=== PATIENT | female | born 1930 | race Caucasian/White ===

== ENCOUNTER → 2017-10-06 | Outpatient (CLI) | payer MEDICARE, OTHER ==
[~2017-10-06] MED LIST: AZIT250T12 PO; INSU100V6 SQ
[2017-10-06 09:36] LABS: BILIRUBIN,URINE NEGATIVE (NEGATIVE); CLARITY,URINE CLEAR; COLOR,URINE YELLOW; GLUCOSE, URINE (UA) NEGATIVE (NEGATIVE); KETONES,URINE NEGATIVE (NEGATIVE); LEUKOCYTE ESTERASE ,URINE 3+ (NEGATIVE); NITRITE,URINE NEGATIVE (NEGATIVE); PH,URINE 5 (5-9); PROTEIN,URINE NEGATIVE (NEGATIVE); UROBILINOGEN,URINE NORMAL (NORMAL)
[2017-10-06 10:00] LABS: BACTERIA,URINE FEW /HPF
== END ==
LOC: LAB 09:17
PROVIDERS: ATTEND Family Medicine
DX: E11.9 Type 2 diabetes mellitus without complications (principal); N39.0 Urinary tract infection, site not specified
CPT/HCPCS: 36415; 81000; 83036; 87077; 87088

== ENCOUNTER 2017-10-12 13:25 | Observation (INO) | payer MEDICARE, OTHER ==
[~2017-10-12] VITALS: Ht 165.1 cm; Wt 74.9 kg
[2017-10-12] VITALS (10 sets, daily range): BP systolic 144–172; BP diastolic 74–85
--- OUTSIDE RECORDS SUMMARY | 2017-10-12 13:31 | XMS REPORT | Continuity of Care Document ---
Author Author [facility] Organization [facility] Address Unknown Phone Unavailable Allergies There is no data. Medications There is no data. Problems Date Dx Coded Attending Type Code Diagnosis Diagnosed By 06/11/2014 TOMAS LYLES JUANITA Tan Ot 599.0 URIN TRACT INFECTION NOS 07/30/2014 Ot 723.1 07/30/2014 Ot 781.3 07/30/2014 Ot 722.52 07/30/2014 GELLENDER DO, JUANITA Tan Ot 599.0 07/31/2014 Ot 723.1 07/31/2014 Ot 781.3 07/31/2014 Ot 722.52 07/31/2014 GELLENDER DO, JUANITA Tan Ot 599.0 08/02/2014 Ot 599.0 10/29/2015 GELLENDER DO, JUANITA Tan Ot R42 DIZZINESS AND GIDDINESS 10/29/2015 GELLENDER DO, JUANITA Tan Ot R42 DIZZINESS AND GIDDINESS 10/30/2015 GELLENDER DO, JUANITA Tan Ot R42 DIZZINESS AND GIDDINESS 10/31/2015 GELLENDER DO, JAUNITA Tan Ot R42 DIZZINESS AND GIDDINESS 11/21/2015 GELLENDER DO, JUANITA Tan Ot R42 DIZZINESS AND GIDDINESS 12/11/2015 GELLENDER DO, JUANITA Tan Ot 599.0 URIN TRACT INFECTION NOS 12/11/2015 Ot 599.0 URIN TRACT INFECTION NOS 12/11/2015 GELLENDER DO, JUANITA Tan Ot R42 DIZZINESS AND GIDDINESS 12/13/2015 GELLENDER DO, JUANITA Tan Ot M54.2 CERVICALGIA 12/16/2015 GELLENDER DO, JUANITA Tan Ot M54.2 CERVICALGIA 12/17/2015 RASHID MEREDITH MD Ot 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 12/17/2015 RASHID MEREDITH MD Ot H91.93 UNSPECIFIED HEARING LOSS, BILATERAL 12/17/2015 RASHID MEREDITH MD Ot R42 DIZZINESS AND GIDDINESS 12/18/2015 RASHID MEREDITH MD Ot 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 12/18/2015 RASHID MEREDITH MD Ot H91.93 UNSPECIFIED HEARING LOSS, BILATERAL 12/18/2015 RASHID MEREDITH MD Ot R42 DIZZINESS AND GIDDINESS 12/18/2015 GELLENDER DO, JUANITA A Ot 599.0 URIN TRACT INFECTION NOS 12/18/2015 Ot 599.0 URIN TRACT INFECTION NOS 12/18/2015 GELLENDER DO, JUANITA A Ot R42 DIZZINESS AND GIDDINESS 12/18/2015 RASHID MEREDITH MD Ot 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 12/18/2015 RASHID MEREDITH MD Ot H91.93 UNSPECIFIED HEARING LOSS, BILATERAL 12/18/2015 RASHID MEREDITH MD Ot R42 DIZZINESS AND GIDDINESS 12/18/2015 GELLENDER DO, JUANITA A Ot M54.2 CERVICALGIA 12/18/2015 GELLENDER DO, JUANITA A Ot 599.0 URIN TRACT INFECTION NOS 12/18/2015 Ot 599.0 URIN TRACT INFECTION NOS 12/18/2015 GELLENDER DO, JUANITA A Ot R42 DIZZINESS AND GIDDINESS 12/18/2015 RASHID MEREDITH MD Ot 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 12/18/2015 RSAHID MEREDITH MD Ot H91.93 UNSPECIFIED HEARING LOSS, BILATERAL 12/18/2015 RASHID MEREDITH MD Ot R42 DIZZINESS AND GIDDINESS 12/18/2015 GELLENDER DO, JUANITA A Ot M54.2 CERVICALGIA 12/18/2015 GELLENDER DO, JUANITA A Ot 599.0 URIN TRACT INFECTION NOS 12/18/2015 Ot 599.0 URIN TRACT INFECTION NOS 12/18/2015 GELLENDER DO, JUANITA A Ot R42 DIZZINESS AND GIDDINESS 12/18/2015 RASHID MEREDITH MD Ot 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 12/18/2015 RASHID MEREDITH MD Ot H91.93 UNSPECIFIED HEARING LOSS, BILATERAL 12/18/2015 RASHID MEREDITH MD Ot R42 DIZZINESS AND GIDDINESS 12/18/2015 GELLENDER DO, JUANITA A Ot M54.2 CERVICALGIA 01/16/2016 RASHID MEREDITH MD Ot 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 01/16/2016 RASHID MEREDITH MD Ot H91.93 UNSPECIFIED HEARING LOSS, BILATERAL 01/16/2016 RASHID MEREDITH MD Ot R42 DIZZINESS AND GIDDINESS 01/16/2016 GELLENDER DO, JUANITA A Ot M54.2 CERVICALGIA 03/06/2016 GELLENDER DO, JUANITA A Ot 599.0 URIN TRACT INFECTION NOS 03/06/2016 Ot 599.0 URIN TRACT INFECTION NOS 03/06/2016 GELLENDER DO, JUANITA A Ot R42 DIZZINESS AND GIDDINESS 03/06/2016 RASHID MEREDITH MD Ot 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 03/06/2016 RASHID MEREDITH MD Ot H91.93 UNSPECIFIED HEARING LOSS, BILATERAL 03/06/2016 RASHID MEREDITH MD Ot R42 DIZZINESS AND GIDDINESS 03/06/2016 GELLENDER DO, JUANITA A Ot M54.2 CERVICALGIA 03/09/2016 GELLENDER DO, JUANITA A Ot N39.0 URINARY TRACT INFECTION, SITE NOT SPECIF 03/12/2016 GELLENDER DO, JUANITA A Ot N39.0 URINARY TRACT INFECTION, SITE NOT SPECIF 03/31/2016 GELLENDER DO, JUANITA A Ot N39.0 URINARY TRACT INFECTION, SITE NOT SPECIF 10/06/2017 GELLENDER DO, JUANITA A Ot R42 DIZZINESS AND GIDDINESS 10/06/2017 RASHID MEREDITH MD Ot 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 Results Test Result Range Bacterial urine culture - 03/06/16 13:10 URINE CULTURE RESULTS <10,000/ML NRG Complete urinalysis with reflex to culture - 10/06/17 09:22 Urine color determination YELLOW NRG Urine clarity determination CLEAR NRG Urine pH measurement by test strip 5 5-9 Specific gravity of urine by test strip 1.020 1.016- 1.022 Urine protein assay by test strip, semi-quantitative NEGATIVE NEGATIVE Urine glucose detection by automated test strip NEGATIVE NEGATIVE Erythrocytes detection in urine sediment by light microscopy NEGATIVE NEGATIVE Urine ketones detection by automated test strip NEGATIVE NEGATIVE Urine nitrite detection by test strip NEGATIVE NEGATIVE Urine total bilirubin detection by test strip NEGATIVE NEGATIVE Urine urobilinogen measurement by automated test strip (mass/volume) NORMAL NORMAL Urine leukocyte esterase detection by dipstick 3+ NEGATIVE Automated urine sediment erythrocyte count by microscopy (number/high power field) NONE NRG Automated urine sediment leukocyte count by microscopy (number/high power field ) [HPF] NRG Bacteria detection in urine sediment by light microscopy FEW NRG Squamous epithelial cells detection in urine sediment by light microscopy 5-10 NRG Crystals detection in urine sediment by light microscopy NONE NRG Casts detection in urine sediment by light microscopy NONE NRG Mucus detection in urine sediment by light microscopy NEGATIVE NRG Complete urinalysis with reflex to culture YES NRG Hemoglobin A1c - 10/06/17 09:22 Blood hemoglobin A1C measurement (mass/volume) 7.3 % 4.0- 5.6 MEAN BLOOD GLUCOSE 163 % <=126 Bacterial urine culture - 10/06/17 09:22 Bacterial urine culture [id number] NRG COLONY COUNT 10,000/ML - 100,000/ML NRG FTX;REPORTABLE SENSITIVITY NOT USUALLY PERFORMED FOR NRG URINE CULTURE RESULTS PLUS NRG FREE TEXT ENTRY 2 THIS ORGANISM. NRG Encounters ACCT No. Visit Date/Time Discharge Status Pt. Type Provider Facility Loc./Unit Complaint [id number] 10/06/2017 09:17:00 10/06/2017 23:59:59 CLS Outpatient JUANITA MARIN DO [facility] LAB UTI,DIABETES [id number] 03/06/2016 12:57:00 03/06/2016 23:59:59 CLS Outpatient JUANITA MARIN DO [facility] LAB INFECTION [id number] 12/12/2015 13:52:00 12/12/2015 23:59:59 CLS Outpatient VIRI TATE, RASHID Douglas [facility] RAD VERTIGO/DIZZINESS; BILATERAL HEARING IMPAIRMENT [id number] 12/11/2015 11:19:00 12/11/2015 23:59:59 CLS Outpatient JUANITA MARIN DO [facility] RAD NECK PAIN FOR A WEEK [id number] 10/29/2015 14:40:00 10/29/2015 23:59:59 CLS Outpatient JUANITA MARIN DO [facility] RAD UNSTEADY GAIT, DIZZINESS,LOSS OF BALANCE [id number] 06/12/2014 00:58:00 06/12/2014 23:59:59 CLS Preadmit JUANITA MARIN DO [facility] LAB INFECTION [id number] 03/13/2014 13:52:00 06/11/2014 00:01:00 DIS Outpatient JUANITA MARIN DO [facility] LAB INFECTION [id number] 07/30/2014 13:14:00 Document Registration [id number] 12/17/2009 10:00:00 Document Registration [id number] 12/03/2009 12:58:00 Document Registration
[2017-10-12] MEDS ORDERED: AZIT250T12 PO (13:53)
[2017-10-12] MEDS ORDERED: INSU100V6 SQ (13:53)
[2017-10-12 14:06] LABS: BASOPHILS # (AUTO) 0.1 10^3/uL (0.0-0.1); BASOPHILS % (AUTO) 1 % (0-10); EOSINOPHILS # (AUTO) 0.1 10^3/uL (0.0-0.3); EOSINOPHILS % (AUTO) 3 % (0-10); HEMATOCRIT 41 % (35-52); HEMOGLOBIN 13.8 G/DL (11.5-16.0); LYMPHOCYTES % (AUTO) 19 % (12-44); MEAN CORPUSCULAR HEMOGLOBIN 31 PG (25-34); MEAN CORPUSCULAR HGB CONC 34 G/DL (32-36); MEAN CORPUSCULAR VOLUME 91 FL (80-99); MEAN PLATELET VOLUME 11.6 FL (7.4-10.4); MONOCYTES # (AUTO) 0.5 X 10^3 (0.0-1.0); MONOCYTES % (AUTO) 9 % (0-12); NEUTROPHILS # (AUTO) 3.8 X 10^3 (1.8-7.8); NEUTROPHILS % (AUTO) 69 % (42-75); PLATELET COUNT 157 10^3/uL (130-400); RED BLOOD COUNT 4.49 10^6/uL (4.35-5.85); RED CELL DISTRIBUTION WIDTH 12.6 % (10.0-14.5); WHITE BLOOD COUNT 5.5 10^3/uL (4.3-11.0)
[2017-10-12 14:15] LABS: PROTHROMBIN TIME PATIENT 13.6 SEC (12.2-14.7)
[2017-10-12 14:19] LABS: ALANINE AMINOTRANSFERASE 23 U/L (0-55); ALBUMIN 4.1 GM/DL (3.2-4.5); ALKALINE PHOSPHATASE 72 U/L (40-136); BILIRUBIN,TOTAL 0.6 MG/DL (0.1-1.0); BUN/CREATININE RATIO 18; CALCIUM 10.1 MG/DL (8.5-10.1); CARBON DIOXIDE 25 MMOL/L (21-32); CHLORIDE 110 MMOL/L (98-107); CREATININE SERUM 1.15 MG/DL (0.60-1.30); GFR ESTIMATED 45; GLUCOSE 152 MG/DL (70-105); LIPASE 36 U/L (8-78); MAGNESIUM 2.3 MG/DL (1.8-2.4); POTASSIUM 4.4 MMOL/L (3.6-5.0); SODIUM 143 MMOL/L (135-145); TOTAL PROTEIN 6.8 GM/DL (6.4-8.2)
[2017-10-12 14:25] LABS: MYOGLOBIN SERUM 32.4 NG/ML (10.0-92.0)
--- NOTE | 2017-10-12 14:28 | Diagnostic Imaging Report ---
INDICATION: Chest pain. COMPARISON: None. FINDINGS: Single frontal view of the chest demonstrates normal heart size and pulmonary vascularity. The lungs are well aerated and clear. No large pleural effusion or pneumothorax is seen. The visualized osseous structures show no acute abnormalities. IMPRESSION: 1. No acute cardiopulmonary process. Dictated by: Dictated on workstation # [id number]
--- NOTE | 2017-10-12 14:40 | ED Chest Pain ---
General Chief Complaint: Chest Pain Stated Complaint: PRESSURE IN CHEST WENT UP TO NECK Nursing Triage Note: PT STATES CHEST PRESSURE UP INTO HER SHOULDER AND NECK THAT HAPPENED ABOUT 1000 TODAY, NO PAIN OR PRESSURE NOW. Nursing Sepsis Screen: No Definite Risk Source: patient Exam Limitations: no limitations History of Present Illness Date Seen by Provider: October 12, 2017 Time Seen by Provider: 13:55 Initial Comments Here with acute onset of chest pressure that started about 1030 this morning and lasted about 45 minutes. Pressure started middle the chest and radiated up towards the neck. It then went into the jaw and base of the ears. Went away on its own over time. Denies ever having anything like this before. Does have history of cardiac catheterization 4 years ago that was apparently normal. Reports that she was dizzy and weak but denies vomiting or sweating. Does have chronic dizziness or confusion and states that's related to moving her legs. Timing/Duration: 1-3 hours Severity/Quality: moderate, pressure Location: central, back Radiation: jaw, neck Activities at Onset: none Prior CP/Workup: cardiac cath Modifying Factors: worse with exercise; improves with rest ASA po RESIDENTIAL ASSISTANT: No (allergy) NTG SL RESIDENTIAL ASSISTANT: No Associated Symptoms: No abdominal pain; back pain, dizziness, fatigue; No fever /chills, No nausea/vomiting, No shortness of breath; weakness Allergies and Home Medications Allergies Coded Allergies: Penicillins (Verified Allergy, Severe, 10/12/17) aspirin (Verified Allergy, Severe, 10/12/17) levofloxacin (Verified Allergy, Intermediate, 10/12/17) Uncoded Allergies: CONTRAST DYE (Allergy, Severe, 10/12/17) Home Medications Azithromycin 250 Mg Tablet, 250 MG PO DAILY, (Reported) Insulin Glargine,Hum.rec.anlog 100 Unit/1 Ml Vial, 10 UNIT SQ HS, (Reported) Patient Home Medication List Home Medication List Reviewed: Yes Review of Systems Constitutional: see HPI; No chills; fever EENTM: No Symptoms Reported Respiratory: No Symptoms Reported Cardiovascular: See HPI Gastrointestinal: See HPI Genitourinary: No Symptoms Reported Musculoskeletal: no symptoms reported Skin: no symptoms reported All Other Systems Reviewed Negative Unless Noted: Yes Past Iafekjl-Uezynq-Gxcyaa Hx Past Med/Social Hx: Reviewed Nursing Past Med/Soc Hx Patient Social History Alcohol Use: Denies Use Recreational Drug Use: No Smoking Status: Never a Smoker 2nd Hand Smoke Exposure: No Recent Foreign Travel: No Contact w/Someone Who Travel: No Recent Infectious Disease Expo: No Recent Hopitalizations: No Immunizations Up To Date Date of Influenza Vaccine: Mar 10, 2017 Seasonal Allergies Seasonal Allergies: Yes Past Medical History Surgeries: Yes (HEART CATH) Appendectomy Respiratory: No Cardiac: Yes (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") Irregular Heartbeat Genitourinary: Yes (CURRENT UTI) Gastrointestinal: No Musculoskeletal: No Endocrine: Yes Diabetes, Non-Insulin dep HEENT: Yes Hearing Impairment: Bilateral Hearing Aide Cancer: No Psychosocial: No Integumentary: Yes Eczema Family Medical History Reviewed Nursing Family Hx Physical Exam Vital Signs Vital Signs - First Documented 10/12/17 13:30 Temp 98.3 Pulse 75 Resp 18 B/P (MAP) 172/73 (106) Pulse Ox 96 O2 Delivery Room Air Capillary Refill : Less Than 3 Seconds General Appearance: No Apparent Distress, WD/WN HEENT: PERRL/EOMI, Pharynx Normal Neck: Non Tender, Supple Respiratory: Lungs Clear, Normal Breath Sounds Cardiovascular: Regular Rate, Rhythm, No Murmur Gastrointestinal: Non Tender, Soft Extremity: Normal Range of Motion, Non Tender Neurologic/Psychiatric: Alert, Oriented x3 Skin: Normal Color, Warm/Dry Progress/Results/Core Measures Results/Orders Lab Results Laboratory Tests Test 10/12/17 13:37 Range/Units White Blood Count 5.5 4.3-11.0 10^3/uL Red Blood Count 4.49 4.35-5.85 10^6/uL Hemoglobin 13.8 11.5-16.0 G/DL Hematocrit 41 35-52 % Mean Corpuscular Volume 91 80-99 FL Mean Corpuscular Hemoglobin 31 25-34 PG Mean Corpuscular Hemoglobin Concent 34 32-36 G/DL Red Cell Distribution Width 12.6 10.0-14.5 % Platelet Count 157 130-400 10^3/uL Mean Platelet Volume 11.6 H 7.4-10.4 FL Neutrophils (%) (Auto) 69 42-75 % Lymphocytes (%) (Auto) 19 12-44 % Monocytes (%) (Auto) 9 0-12 % Eosinophils (%) (Auto) 3 0-10 % Basophils (%) (Auto) 1 0-10 % Neutrophils # (Auto) 3.8 1.8-7.8 X 10^3 Lymphocytes # (Auto) 1.0 1.0-4.0 X 10^3 Monocytes # (Auto) 0.5 0.0-1.0 X 10^3 Eosinophils # (Auto) 0.1 0.0-0.3 10^3/uL Basophils # (Auto) 0.1 0.0-0.1 10^3/uL Prothrombin Time 13.6 12.2-14.7 SEC INR Comment 1.0 0.8-1.4 Activated Partial Thromboplast Time 28 24-35 SEC Sodium Level 143 135-145 MMOL/L Potassium Level 4.4 3.6-5.0 MMOL/L Chloride Level 110 H 98-107 MMOL/L Carbon Dioxide Level 25 21-32 MMOL/L Anion Gap 8 5-14 MMOL/L Blood Urea Nitrogen 21 H 7-18 MG/DL Creatinine 1.15 0.60-1.30 MG/DL Estimat Glomerular Filtration Rate 45 BUN/Creatinine Ratio 18 Glucose Level 152 H 70-105 MG/DL Calcium Level 10.1 8.5-10.1 MG/DL Magnesium Level 2.3 1.8-2.4 MG/DL Total Bilirubin 0.6 0.1-1.0 MG/DL Aspartate Amino Transf (AST/SGOT) 22 5-34 U/L Alanine Aminotransferase (ALT/SGPT) 23 0-55 U/L Alkaline Phosphatase 72 40-136 U/L Myoglobin 32.4 10.0-92.0 NG/ML Troponin I < 0.30 <0.30 NG/ML Total Protein 6.8 6.4-8.2 GM/DL Albumin 4.1 3.2-4.5 GM/DL Lipase 36 8-78 U/L My Orders Orders - JANEL LESTER MD Cbc With Automated Diff (10/12/17 13:59) Magnesium (10/12/17 13:59) Chest 1 View, Ap/Pa Only (10/12/17 13:59) Ekg Tracing (10/12/17 13:59) Cardiac Profile 1 (10/12/17 13:59) Comprehensive Metabolic Panel (10/12/17 13:59) Myoglobin Serum (10/12/17 13:59) Protime With Inr (10/12/17 13:59) Partial Thromboplastin Time (10/12/17 13:59) O2 (10/12/17 13:59) Monitor-Rhythm Ecg Trace Only (10/12/17 13:59) Lipid Panel (10/13/17 06:00) Saline Lock/Iv-Start (10/12/17 13:59) Lipase (10/12/17 13:59) Vital Signs/I&O 10/12/17 10/12/17 13:30 13:53 Temp 98.3 Pulse 75 Resp 18 B/P (MAP) 172/73 (106) Pulse Ox 96 O2 Delivery Room Air Room Air Blood Pressure Mean: 106 Progress Progress Note : Progress Note Seen and evaluated. IV, labs, EKG and chest x-ray ordered. No ASA as patient has allergies. Monitor patient. 1440: No significant findings. Concerning history with the radiation of the chest pressure. This in the setting of patient's age increases her risk. I do believe patient would benefit from further evaluation. She is in agreement. I did discuss the case with Dr. Marin and he accepts patient for admission, observation status. I did discuss the case with Dr. Brown, who accepted patient for consult. Findings and concerns discussed with patient and family who agree with plan. 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 Left axis deviation. Question LVH. No evidence of ST elevation SC. No previous available for comparison. Interpreted by me. Diagnostic Imaging Diagonstic Imaging: Xray Plain Films/CT/US/NM/MRI: chest Comments VIA [facility]. [place], [place] NAME: [facility] REC#: [id number] PT STATUS: REG ER : 1930 PHYSICIAN: JANEL LESTER MD ADMIT DATE: 10/12/17/ER Draft Date of Exam:10/12/17 CHEST 1 VIEW, AP/PA ONLY INDICATION: Chest pain. COMPARISON: None. FINDINGS: Single frontal view of the chest demonstrates normal heart size and pulmonary vascularity. The lungs are well aerated and clear. No large pleural effusion or pneumothorax is seen. The visualized osseous structures show no acute abnormalities. IMPRESSION: 1. No acute cardiopulmonary process. Dictated on workstation # [id number] Dict: 10/12/17 1426 Trans: 10/12/17 1427 [id number] Interpreted by: YOUNG FULTON MD Electronically signed by: Departure Communication (Admissions) Time/Spoke to Admitting Phy: 14:40 Time/Spoke to Consulting Phy: 14:45 Impression Primary Impression: Chest pain Qualified Codes: R07.9 - Chest pain, unspecified Disposition: ADMITTED INPATIENT Condition: Stable Admissions Decision to Admit Reason: Admit from ER (General) Decision to Admit/Date: October 12, 2017 Time/Decision to Admit Time: 14:40 Departure-Patient Inst. Referrals: JUANITA MARIN DO (PCP/Family) Primary Care Physician JANEL LESTER MD October 12, 2017 14:40
--- OUTSIDE RECORDS SUMMARY | 2017-10-12 15:02 | XMS REPORT | Continuity of Care Document ---
Author Author [facility] Organization [facility] Address Unknown Phone Unavailable Allergies There is [...] R42 DIZZINESS AND GIDDINESS 10/31/2015 GELLENDER DO, JUANITA Tan Ot R42 DIZZINESS AND GIDDINESS 11/21/2015 [...] culture - 10/06/17 09:22 Bacterial urine culture [id number] NRG COLONY COUNT 10,000/ML - 100,000/ML NRG FTX;REPORTABLE SENSITIVITY NOT USUALLY PERFORMED FOR NRG URINE CULTURE RESULTS PLUS NRG FREE TEXT ENTRY 2 THIS ORGANISM. NRG Encounters ACCT No. Visit Date/Time Discharge Status Pt. Type Provider Facility Loc./Unit Complaint [id number] 10/06/2017 09:17:00 10/06/2017 23:59:59 CLS Outpatient JUANITA MARIN DO [facility] LAB UTI,DIABETES [id number] 03/06/2016 12:57:00 03/06/2016 23:59:59 CLS Outpatient JUANITA MARIN DO [facility] LAB INFECTION [id number] 12/12/2015 13:52:00 12/12/2015 23:59:59 CLS Outpatient VIRI TATE, RASHID Douglas [facility] RAD VERTIGO/DIZZINESS; BILATERAL HEARING IMPAIRMENT [id number] 12/11/2015 11:19:00 12/11/2015 23:59:59 CLS Outpatient JUANITA MARIN DO [facility] RAD NECK PAIN FOR A WEEK [id number] 10/29/2015 14:40:00 10/29/2015 23:59:59 CLS Outpatient JUANITA MARIN DO [facility] RAD UNSTEADY GAIT, DIZZINESS,LOSS OF BALANCE [id number] 06/12/2014 00:58:00 06/12/2014 23:59:59 CLS Preadmit JUANITA MARIN DO [facility] LAB INFECTION [id number] 03/13/2014 13:52:00 06/11/2014 00:01:00 DIS Outpatient JUANITA MARIN DO [facility] LAB INFECTION [id number] 07/30/2014 13:14:00 Document Registration [id number] 12/17/2009 10:00:00 Document Registration [id number] 12/03/2009 12:58:00 Document Registration
[2017-10-12] MEDS ORDERED: morphine INJ 4 MG/ML 1 ML (VIAL/SYRINGE) IVP PRN (16:15)
[2017-10-12] MEDS ORDERED: NITROGLYCERIN 0.4 MG SL TABS BTL 25'S SL PRN (16:15)
[2017-10-12 18:53] LABS: CARDIAC PROFILE 2 < 0.30 NG/ML (<0.30); MYOGLOBIN SERUM 29.8 NG/ML (10.0-92.0)
--- NOTE | 2017-10-12 19:40 | History & Physicial ---
History of Present Illness History of Present Illness Reason for visit/HPI Patient call the office today. Patient got up in October bed and got the paper. In patient had pressure in the chest radiating up to neck and jaw and going in the left ear. Can walk to the door. Just about passed out. No sweating less thickness. This never happened before. Patient 4 years ago had a negative coronary angiography. Patient and known diabetic Date of Admission October 12, 2017 at 14:45 Time Seen by Provider: 19:35 I consulted on this patient on 10/12/17 19:36 Attending Physician Jose Carlos Marin DO Admitting Physician Jose Carlos Marin DO Consult Allergies and Home Medications Allergies Coded Allergies: Penicillins (Verified Allergy, Severe, 10/12/17) aspirin (Verified Allergy, Severe, 10/12/17) levofloxacin (Verified Allergy, Intermediate, 10/12/17) Uncoded Allergies: CONTRAST DYE (Allergy, Severe, 10/12/17) Home Medications Azithromycin 250 Mg Tablet, 250 MG PO DAILY, (Reported) FILLED 10/11/17 #6 FOR A 5 DAY THERAPY Insulin Glargine,Hum.rec.anlog 100 Unit/1 Ml Vial, 10 UNIT SQ HS, (Reported) Patient Home Medication List Home Medication List Reviewed: Yes Past Sjgrwjt-Hnivtp-Wgckbt Hx Patient Social History Marrital Status: Employed/Student: retired Alcohol Use: Denies Use Recreational Drug Use: No Smoking Status: Never a Smoker 2nd Hand Smoke Exposure: No Physical Abuse Screen: No Sexual Abuse: No Recent Foreign Travel: No Contact w/other who traveled: No Recent Hopitalizations: No Recent Infectious Disease Expo: No Immunizations Up To Date Date of Influenza Vaccine: Mar 10, 2017 Seasonal Allergies Seasonal Allergies: Yes Surgeries Yes (HEART CATH) Appendectomy Respiratory No Cardiovascular Yes (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") Irregular Heartbeat Neurological No Genitourinary Yes (CURRENT UTI) Gastrointestinal No Musculoskeletal No Endocrine History of Endocrine Disorders: Yes Endocrine Disorders: Diabetes, Non-Insulin dep Are Your Blood Sugars Over 250: No HEENT History of HEENT Disorders: Yes (VERTIGO) Hearing Impairment: Bilateral Hearing Aide Cancer No Psychosocial History of Psychiatric Problem: No Integumentary History of Skin or Integumenta: Yes Skin/Integumentary Disorders: Eczema Blood Transfusions History of Blood Disorders: No Family Medical History Family Hx: Cardiovascular disease 19 MOTHER Diabetes mellitus SON DAUGHTER Constitutional: no symptoms reported, weakness EENTM: no symptoms reported Respiratory: no symptoms reported Cardiovascular: chest pain Gastrointestinal: no symptoms reported Genitourinary: no symptoms reported : No Physical Exam Vital Signs Vital Signs - First Documented 10/12/17 13:30 Temp 98.3 Pulse 75 Resp 18 B/P (MAP) 172/73 (106) Pulse Ox 96 O2 Delivery Room Air Capillary Refill : Less Than 3 Seconds General Appearance: No Apparent Distress Eyes: Bilateral Eye Normal Inspection HEENT: Normal ENT Inspection Neck: Full Range of Motion, Normal Inspection, Non Tender Respiratory: Chest Non Tender, Lungs Clear, No Accessory Muscle Use, No Respiratory Distress Cardiovascular: Regular Rate, Rhythm, No Murmur Gastrointestinal: Non Tender, Soft Assessment/Plan Assessment and Plan Chest pain. Diabetes. Admission Diagnosis Admission Status: Observation Clinical Quality Measures AMI/AHF: ASA po Prior to arrival: No (allergy) DVT/VTE Risk/Contraindication: Risk Factor Score Per Nursin RFS Level Per Nursing on Admit: 4+=Very High JOSE CARLOS MARIN DO October 12, 2017 19:40
[2017-10-12] MEDS: inSUlin ASPART (NovoLOG) 1 UNIT/0.01 ML (CHARGE PER UNIT) SC SCH (20:54)
[2017-10-12] MEDS ORDERED: ENOXAPARIN 30 MG/0.3 ML (LOVENOX) SYR SC SCH (21:00)
[2017-10-13] VITALS: BP 120/66
[2017-10-13 04:03] VITALS: BP 118/60
[2017-10-13] MEDS: inSUlin ASPART (NovoLOG) 1 UNIT/0.01 ML (CHARGE PER UNIT) SC SCH ×2 (05:36→11:29)
[2017-10-13 05:46] LABS: BASOPHILS # (AUTO) 0.1 10^3/uL (0.0-0.1); BASOPHILS % (AUTO) 1 % (0-10); EOSINOPHILS # (AUTO) 0.2 10^3/uL (0.0-0.3); EOSINOPHILS % (AUTO) 3 % (0-10); HEMATOCRIT 39 % (35-52); HEMOGLOBIN 12.9 G/DL (11.5-16.0); LYMPHOCYTES % (AUTO) 22 % (12-44); MEAN CORPUSCULAR HEMOGLOBIN 30 PG (25-34); MEAN CORPUSCULAR HGB CONC 34 G/DL (32-36); MEAN CORPUSCULAR VOLUME 91 FL (80-99); MEAN PLATELET VOLUME 11.8 FL (7.4-10.4); MONOCYTES # (AUTO) 0.6 X 10^3 (0.0-1.0); MONOCYTES % (AUTO) 13 % (0-12); NEUTROPHILS # (AUTO) 2.7 X 10^3 (1.8-7.8); NEUTROPHILS % (AUTO) 61 % (42-75); PLATELET COUNT 139 10^3/uL (130-400); RED BLOOD COUNT 4.24 10^6/uL (4.35-5.85); RED CELL DISTRIBUTION WIDTH 12.4 % (10.0-14.5); WHITE BLOOD COUNT 4.4 10^3/uL (4.3-11.0)
[2017-10-13 05:57] LABS: ALANINE AMINOTRANSFERASE 19 U/L (0-55); ALBUMIN 3.7 GM/DL (3.2-4.5); ALKALINE PHOSPHATASE 62 U/L (40-136); BILIRUBIN,TOTAL 0.5 MG/DL (0.1-1.0); BUN/CREATININE RATIO 29; CALCIUM 9.3 MG/DL (8.5-10.1); CARBON DIOXIDE 21 MMOL/L (21-32); CHLORIDE 112 MMOL/L (98-107); CREATININE SERUM 0.73 MG/DL (0.60-1.30); GFR ESTIMATED > 60; GLUCOSE 134 MG/DL (70-105); POTASSIUM 4.3 MMOL/L (3.6-5.0); SODIUM 140 MMOL/L (135-145); TOTAL PROTEIN 5.6 GM/DL (6.4-8.2)
[2017-10-13 05:58] LABS: CHOLESTEROL 142 MG/DL (< 200); HDL CHOLESTEROL 35 MG/DL (40-60); TRIGLYCERIDES 74 MG/DL (<150); VLDL CHOLESTEROL 15 MG/DL (5-40)
--- NOTE | 2017-10-13 07:24 | Progress Note (SOAP) ---
Subjective Time Seen by Provider: 07:20 Subjective/Events-last exam Patient had a good night. Patient does not want to have stress test. Patient sensitive to many medicines. Patient not having any chest pain this morning. Patient to see channel program manager Objective Exam Vital Signs Date Time Temp Pulse Resp B/P (MAP) Pulse Ox O2 Delivery O2 Flow Rate FiO2 10/13/17 04:03 98.2 66 16 118/60 (79) 97 Room Air 10/13/17 01:00 60 10/13/17 00:00 98.7 64 18 120/66 (84) 97 Room Air 10/12/17 19:25 98.4 61 16 145/81 (102) 96 10/12/17 18:25 80 20 155/85 (108) 97 Room Air 10/12/17 17:23 66 18 172/75 (107) 98 Room Air 10/12/17 16:25 64 16 144/77 (99) 98 Room Air 10/12/17 16:10 68 16 159/74 (102) 97 Room Air 10/12/17 16:00 97.1 68 20 145/75 (98) 99 10/12/17 15:55 65 16 145/75 (98) 98 Room Air 10/12/17 15:45 96.7 71 22 157/77 (103) 96 Room Air 10/12/17 15:39 96.7 72 18 157/77 (103) 97 Room Air 10/12/17 15:33 98.0 61 18 154/67 (106) 98 Room Air 10/12/17 13:53 Room Air 10/12/17 13:30 98.3 75 18 172/73 (106) 96 Room Air I & O 10/13/17 07:00 Intake Total 450 ml Output Total 400 ml Balance 50 ml Capillary Refill : Less Than 3 Seconds General Appearance: No Apparent Distress, WD/WN HEENT: Normal ENT Inspection Neck: Full Range of Motion, Normal Inspection Respiratory: Chest Non Tender, No Accessory Muscle Use, No Respiratory Distress Gastrointestinal: non tender, soft Results Lab Laboratory Tests 10/12/17 13:37 10/13/17 04:50 Laboratory Tests 10/12/17 13:37: White Blood Count 5.5, Red Blood Count 4.49, Hemoglobin 13.8, Hematocrit 41, Mean Corpuscular Volume 91, Mean Corpuscular Hemoglobin 31, Mean Corpuscular Hemoglobin Concent 34, Red Cell Distribution Width 12.6, Platelet Count 157, Mean Platelet Volume 11.6H, Neutrophils (%) (Auto) 69, Lymphocytes (%) (Auto) 19 , Monocytes (%) (Auto) 9, Eosinophils (%) (Auto) 3, Basophils (%) (Auto) 1, Neutrophils # (Auto) 3.8, Lymphocytes # (Auto) 1.0, Monocytes # (Auto) 0.5, Eosinophils # (Auto) 0.1, Basophils # (Auto) 0.1, Prothrombin Time 13.6, INR Comment 1.0, Activated Partial Thromboplast Time 28, Sodium Level 143, Potassium Level 4.4, Chloride Level 110H, Carbon Dioxide Level 25, Anion Gap 8, Blood Urea Nitrogen 21H, Creatinine 1.15, Estimat Glomerular Filtration Rate 45 , BUN/Creatinine Ratio 18, Glucose Level 152H, Calcium Level 10.1, Magnesium Level 2.3, Total Bilirubin 0.6, Aspartate Amino Transf (AST/SGOT) 22, Alanine Aminotransferase (ALT/SGPT) 23, Alkaline Phosphatase 72, Myoglobin 32.4, Troponin I < 0.30, Total Protein 6.8, Albumin 4.1, Lipase 36 10/12/17 18:10: Myoglobin 29.8, Troponin I < 0.30 10/12/17 20:34: Glucometer 227H 10/12/17 23:49: Troponin I < 0.30 10/13/17 04:50: White Blood Count 4.4, Red Blood Count 4.24L, Hemoglobin 12.9, Hematocrit 39, Mean Corpuscular Volume 91, Mean Corpuscular Hemoglobin 30, Mean Corpuscular Hemoglobin Concent 34, Red Cell Distribution Width 12.4, Platelet Count 139, Mean Platelet Volume 11.8H, Neutrophils (%) (Auto) 61, Lymphocytes (%) (Auto) 22 , Monocytes (%) (Auto) 13H, Eosinophils (%) (Auto) 3, Basophils (%) (Auto) 1, Neutrophils # (Auto) 2.7, Lymphocytes # (Auto) 1.0, Monocytes # (Auto) 0.6, Eosinophils # (Auto) 0.2, Basophils # (Auto) 0.1, Sodium Level 140, Potassium Level 4.3, Chloride Level 112H, Carbon Dioxide Level 21, Anion Gap 7, Blood Urea Nitrogen 21H, Creatinine 0.73, Estimat Glomerular Filtration Rate > 60, BUN /Creatinine Ratio 29, Glucose Level 134H, Calcium Level 9.3, Total Bilirubin 0.5 , Aspartate Amino Transf (AST/SGOT) 19, Alanine Aminotransferase (ALT/SGPT) 19, Alkaline Phosphatase 62, Total Protein 5.6L, Albumin 3.7, Triglycerides Level 74 , Cholesterol Level 142, LDL Cholesterol Direct 92, VLDL Cholesterol 15, HDL Cholesterol 35L 10/13/17 05:05: Glucometer 127H Assessment/Plan Assessment/Plan Assess & Plan/Chief Complaint Patient feeling better today. Patient does not want a stress test. Patient allergic to many medications. To speak to channel program manager today Clinical Quality Measures Admission Status Admission Dx Chest pain. Diabetes. AMI/AHF: ASA po Prior to arrival: No (allergy) DVT/VTE Risk/Contraindication: Risk Factor Score Per Nursin RFS Level Per Nursing on Admit: 4+=Very High JUANITA MARIN DO October 13, 2017 07:24
[2017-10-13 08:00] VITALS: BP 132/74
--- NOTE | 2017-10-13 14:56 | Consultation-Cardiology ---
HPI-Cardiology Cardiology Consultation: Date of Consultation 10/13/17 Date of Admission Attending Physician Jose Carlos Palumbo DO Admitting Physician Jose Carlos Palumbo DO Consulting Physician Emile BROWN MD HPI: Time Seen by Provider: 09:00 Chief Complaint: Chest pain This is a 87-year-old lady with history of diabetes. She denies hypertension, active smoking. She had coronary angiography a few years ago which according to the patient was within normal limits. No records available. She presented with episode of chest pain which radiated to her neck. Also complained of near syncope. No other associated cardiac symptoms including shortness of breath, palpitations. Moderate intensity. No exacerbating or relieving factors. Chest pain has since resolved. Review of Systems-Cardiology Review of Systems Constitutional: As described under HPI; No As described under HPI, No no symptoms reported, No chills, No fever, No lightheadedness Eyes: No As described under HPI, No no symptoms reported, No blindness, No blurred vision, No contact lenses, No drainage, No decreased acuity, No foreign body sensation, No pain, No vision change Ears/Nose/Throat: No As described under HPI, No no symptoms reported, No chronic hearing loss, No ear discharge, No ear pain, No nasal drainage, No ulcerations Respiratory: No no symptoms reported; As described under HPI; No As described under HPI, No cough, No orthopnea, No shortness of breath, No SOB with excertion Cardiovascular: No no symptoms reported; As described under HPI; No As described under HPI; chest pain; No edema, No irregular heart rate, No lightheadedness, No palpitations Gastrointestinal: No no symptoms reported, No As described under HPI, No abdomen distended, No abdominal pain, No blood streaked bowels, No constipation , No diarrhea, No nausea, No vomiting, No stool coloration changes Genitourinary: No As described under HPI, No burning, No dysuria, No discharge , No frequency, No flank pain, No hematuria, No urgency : No Musculoskeletal: No no symptoms reported, No As describe under HPI, No back pain, No gout, No joint pain, No joint swelling, No muscle pain, No muscle stiffness, No neck pain, No other Skin: No no symptoms reported, No As described under HPI, No change in color, No change in hair/nails, No dryness, No lesions, No lumps, No rash, No other, No skin related problems, No ulcerations, No rash on exposed areas, No ulcerations on exposed areas Psychiatric/Neurological: No anxiety, No depression, No seizure, No focal weakness, No syncope Hematologic: No bleeding abnormalities All Other Systems Reviewed Negative Unless Noted: Yes BIT-[id number]-[id number] Hx Patient Social History Marrital Status: Employed/Student: retired Alcohol Use: Denies Use Recreational Drug Use: No Smoking Status: Never a Smoker 2nd Hand Smoke Exposure: No Recent Foreign Travel: No Recent Infectious Disease Expo: No Physical Abuse Screen: No Sexual Abuse: No Immunizations Up To Date Date of Influenza Vaccine: Mar 10, 2017 Past Medical History PMH As described under Assessment. Family Medical History Family History: Cardiovascular disease 19 MOTHER Diabetes mellitus SON DAUGHTER Allergies and Home Medications Allergies Coded Allergies: Penicillins (Verified Allergy, Severe, 10/12/17) aspirin (Verified Allergy, Severe, 10/12/17) levofloxacin (Verified Allergy, Intermediate, 10/12/17) Uncoded Allergies: CONTRAST DYE (Allergy, Severe, 10/12/17) Home Medications Insulin Glargine,Hum.rec.anlog 100 Unit/1 Ml Vial, 10 UNIT SQ HS, (Reported) Patient Home Medication List Home Medication List Reviewed: Yes Physical Exam-Cardiology Physical Exam Vital Signs/I&O 10/13/17 10/13/17 10/13/17 10/13/17 04:03 07:00 08:00 11:45 Temp 98.2 96.8 Pulse 66 58 57 Resp 16 20 B/P (MAP) 118/60 (79) 132/74 (93) Pulse Ox 97 98 O2 Delivery Room Air Room Air 10/13/17 00:00 Intake Total 350 ml Balance 350 ml Capillary Refill : Less Than 3 Seconds Constitutional: appears stated age, AAO x 3; No apparent distress; well- developed, well-nourished HEENT: PERRL; No discharge; hearing is well preserved, oral hygience is good; No ulceration, No xanthelasmas are seen Neck: No non-tender, No full range of motion, No supple, No normal inspection, No carotid bruit, No limited range of motion, No lymphadenopathy (R), No lymphadenopathy (L), No tender lateral, No tender midline, No thyromegaly, No other; carotid pulses are 2 + bilaterally; No with good upstrokes Respiratory: No accessory muscle use, No respiratory distress, No chest tender , No chest expansion is symmetric; chest is bilaterally symmetric; No lungs clear to percussion; lungs clear to auscultation; No crackles, No rhonchi, No rales, No stridor, No wheezing, No pleural rub, No other Cardiovascular: regular rate-rhythm, S1 and S2 Gastrointestinal: No tender, No soft, No round, No distended, No pulsatile mass , No organomegaly, No guarding, No rebound, No tenderness, No hernia, No mass, No audible bowel sounds, No abnormal bowel sounds, No abdominal bruits, No spleenomegaly, No other Rectal: deferred Extremities: No normal range of motion, No non-tender, No normal inspection, No pedal edema, No calf tenderness, No normal capillary refill, No pelvis stable , No calf tenderness, No inflammation, No pedal edema, No slow capillary refill , No swelling, No other, No abrasion, No clubbing, No cyanosis, No ecchymosis, No laceration, No no lower extremity edema bilateral, No significant edema, No tenderness, No wound Neurologic/Psychiatric: No military pay technician II-XII nml as tested; no motor/sensory deficits , alert, normal mood/affect, oriented x 3; No abnormal cerebellar tests, No abnormal military pay technician II-XII, No abnormal gait, No aphasia, No EOM palsy, No facial droop , No motor weakness, No sensory deficit, No depressed affect, No disoriented x 3 , No other, No grossly intact; power is 5/5 both on sides Skin: No normal color, No warm/dry, No cyanosis, No cool, No diaphoresis, No damp, No ecchymosis, No jaundice, No mottled, No pallor, No rash, No tattoos/ piercings, No ulcerations, No rash on exposed areas, No ulcerations on exposed areas, No other Data Review Labs Laboratory Tests 10/12/17 18:10: Myoglobin 29.8, Troponin I < 0.30 10/12/17 20:34: Glucometer 227H 10/12/17 23:49: Troponin I < 0.30 10/13/17 04:50: White Blood Count 4.4, Red Blood Count 4.24L, Hemoglobin 12.9, Hematocrit 39, Mean Corpuscular Volume 91, Mean Corpuscular Hemoglobin 30, Mean Corpuscular Hemoglobin Concent 34, Red Cell Distribution Width 12.4, Platelet Count 139, Mean Platelet Volume 11.8H, Neutrophils (%) (Auto) 61, Lymphocytes (%) (Auto) 22 , Monocytes (%) (Auto) 13H, Eosinophils (%) (Auto) 3, Basophils (%) (Auto) 1, Neutrophils # (Auto) 2.7, Lymphocytes # (Auto) 1.0, Monocytes # (Auto) 0.6, Eosinophils # (Auto) 0.2, Basophils # (Auto) 0.1, Sodium Level 140, Potassium Level 4.3, Chloride Level 112H, Carbon Dioxide Level 21, Anion Gap 7, Blood Urea Nitrogen 21H, Creatinine 0.73, Estimat Glomerular Filtration Rate > 60, BUN /Creatinine Ratio 29, Glucose Level 134H, Calcium Level 9.3, Total Bilirubin 0.5 , Aspartate Amino Transf (AST/SGOT) 19, Alanine Aminotransferase (ALT/SGPT) 19, Alkaline Phosphatase 62, Total Protein 5.6L, Albumin 3.7, Triglycerides Level 74 , Cholesterol Level 142, LDL Cholesterol Direct 92, VLDL Cholesterol 15, HDL Cholesterol 35L 10/13/17 05:05: Glucometer 127H ECG Impression ECG Initial ECG Rhythm: Normal Sinus A/P-Cardiology Assessment/Admission Diagnosis Chest pain, Diabetes Plan Chest pain: Acute coronary syndrome ruled out with negative serial troponins and EKG. I recommended nuclear stress testing but the patient refused nuclear stress testing because she did not want to have the dye. Apparently she had contrast allergy before during coronary angiography. I did try to educate her that the contrast agent used in coronary angiography is different than the radioisotope that we use during nuclear stress testing but she still refused. I also offered her dobutamine stress echocardiogram but she also refused any kind of testing. Echocardiogram pending. Can be discharged to follow-up with Dr. Palumbo. Diabetes: Continue insulin. Thank you for your consultation. Please call me if you have any questions. Minda Brown MD, FACP, FACC, FSCAI, FHRS, CCDS Interventional Cardiology Cardiac Electrophysiology Vascular Medicine and Endovascular Interventions Clinical Quality Measures AMI/AHF: ASA po Prior to arrival: No (allergy) DVT/VTE Risk/Contraindication: Risk Factor Score Per Nursin RFS Level Per Nursing on Admit: 4+=Very High Emile BROWN MD October 13, 2017 14:56
[2017-10-13] MEDS ORDERED: ENOXAPARIN 40 MG/0.4 ML (LOVENOX) SYR SC SCH (21:00)
--- NOTE | 2017-10-15 07:13 | Clinic Account Progress/Dx ---
Clinic Account Progress/Dx DIAGNOSIS: Time Seen by Provider: 07:10 Chest pain unspecified. Diabetes. UTI. history JUANITA MARIN DO October 15, 2017 07:13
== END 2017-10-13 09:58 | disposition home or self-care (01) ==
LOC: EDUNIT# 13:25 → ER 13:28 → UNDOADMOB 14:45 → 4TH 14:45 → UNDODISOB 10-13 11:45
PROVIDERS: ADMIT Family Medicine; ATTEND Family Medicine
DX: R07.89 Other chest pain (principal); E11.9 Type 2 diabetes mellitus without complications; Z79.4 Long term (current) use of insulin; Z91.041 Radiographic dye allergy status
CPT/HCPCS: 36415; 71045; 80053; 80061; 82962; 83690; 83735; 83874; 84484; 85025; 85610; 85730; 93005; 93041; 93306; G0378

== ENCOUNTER → 2017-12-14 | Outpatient (CLI) | payer MEDICARE, OTHER | LOC: LAB 11:31 | PROVIDERS: ATTEND Family Medicine | DX: N39.0 Urinary tract infection, site not specified (principal) | CPT/HCPCS: 87088 ==

== ENCOUNTER → 2018-09-12 | Outpatient (CLI) | payer MEDICARE, OTHER ==
--- NOTE | 2018-09-12 12:19 | Diagnostic Imaging Report ---
EXAMINATION: Left lower extremity venous Doppler. INDICATION: Leg pain and swelling. TECHNIQUE: Spectral and color flow imaging of the deep venous system of the left lower extremity was performed. COMPARISON: There are no prior studies available for comparison. FINDINGS: There is generally good blood flow and compressibility at all levels. There is no sign of deep venous thrombosis. IMPRESSION: There is no evidence for deep venous thrombosis of the left lower extremity. Dictated by: Dictated on workstation # [id number]
== END ==
LOC: RAD 11:37
PROVIDERS: ATTEND Family Medicine
DX: M79.89 Other specified soft tissue disorders (principal)

== ENCOUNTER 2018-10-13 10:03 | Outpatient (RCR) | payer MEDICARE, OTHER | END 2018-11-07 13:45 | disposition home or self-care (01) | PROVIDERS: ATTEND Family Medicine | DX: R26.81 Unsteadiness on feet (principal) ==

== ENCOUNTER → 2018-10-18 | Outpatient (CLI) | payer MEDICARE, OTHER ==
--- NOTE | 2018-10-18 14:09 | Diagnostic Imaging Report ---
INDICATION: Intermittent constipation x1 month. TECHNIQUE: Two supine views of the abdomen at 11:55 a.m. CORRELATION STUDY: None. FINDINGS: Lung bases are clear. Mild severity fecal retention. No evidence for large fecal impaction. There are few gas-filled loops of bowel; however, no evidence for underlying obstruction. Few punctate calcifications are superimposed over the right renal silhouette which may be reflective of underlying nonobstructing stones. Additional calcifications in the pelvis likely phleboliths greatest on left. IMPRESSION: 1. Nonobstructive appearing bowel gas pattern. Mild severity fecal retention without evidence for large fecal impaction or constipation. 2. Calcifications over the right renal silhouette suspect for potential renal stones. Dictated by: Dictated on workstation # [id number]
== END ==
LOC: RAD 11:26
PROVIDERS: ATTEND Family Medicine
DX: K59.09 Other constipation (principal); N28.89 Other specified disorders of kidney and ureter
CPT/HCPCS: 74018

== ENCOUNTER 2019-07-27 16:42 | Observation (INO) | payer MEDICARE, OTHER ==
[~2019-07-27] VITALS: Ht 167 cm; Wt 79.7 kg
--- NOTE | 2019-07-27 17:12 | ED Neurological Problem ---
General Chief Complaint: Neuro-Stroke Like Symptoms Stated Complaint: CONFUSED Nursing Triage Note: PT STATES HER DAUGHTER CALLED HER AT 1545 AND ACCORDING TO HER DAUGHTER SHE WAS NOT MAKING SENSE AND WAS UNABLE TO FINISH HER SENTENCES. SON STATES HE TALKED TO HER ABOUT 1330 AND SHE WAS TALKING FINE THEN. PT COMPLAINS OF EXTREME DIZZINESS. ALBE TO TALK NOW WITHOUT DIFFICULTY. Nursing Sepsis Screen: No Definite Risk Source: patient Exam Limitations: no limitations History of Present Illness Date Seen by Provider: Jul 27, 2019 Time Seen by Provider: 17:10 Initial Comments To ER with concern of altered mental status. Was brought by private vehicle. At about 1:15 today her son talked to her on the phone and she seemed normal. At about 4:15 the son spoke to the daughter who spoke to her over the phone and her speech was garbled and not making sense. She has a history of urinary tract infections that have presented similar. At this time and reports she seems back to normal completely. She has been unusually fatigued for the past 48-72 hours. Timing/Duration: other (2-3 days) Severity: moderate Associated Symptoms: confusion Allergies and Home Medications Allergies Coded Allergies: Penicillins (Verified Allergy, Severe, 10/12/17) aspirin (Verified Allergy, Severe, 10/12/17) levofloxacin (Verified Allergy, Intermediate, 10/12/17) Uncoded Allergies: CONTRAST DYE (Allergy, Severe, 10/12/17) Home Medications Insulin Glargine,Hum.rec.anlog 100 Unit/1 Ml Vial, 10 UNIT SQ HS, (Reported) Patient Home Medication List Home Medication List Reviewed: Yes Review of Systems Review of Systems Constitutional: see HPI Eyes: No Symptoms Reported Ears, Nose, Mouth, Throat: no symptoms reported Respiratory: no symptoms reported Cardiovascular: no symptoms reported Genitourinary: no symptoms reported Musculoskeletal: no symptoms reported Skin: no symptoms reported Psychiatric/Neurological: See HPI, Cognitive Dysfunction Endocrine: No Symptoms Reported Hematologic/Lymphatic: No Symptoms Reported Past Ezdafei-Wgcdxo-Lkiguw Hx Patient Social History 2nd Hand Smoke Exposure: No Recent Foreign Travel: No Contact w/Someone Who Travel: No Recent Infectious Disease Expo: No Recent Hopitalizations: No Immunizations Up To Date Date of Influenza Vaccine: Mar 10, 2017 Seasonal Allergies Seasonal Allergies: Yes Past Medical History Surgeries: Yes (HEART CATH) Appendectomy Respiratory: No Cardiac: Yes (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") Irregular Heartbeat Neurological: No Genitourinary: Yes (CURRENT UTI) Gastrointestinal: No Musculoskeletal: No Endocrine: Yes Diabetes, Non-Insulin dep HEENT: Yes (VERTIGO) Hearing Impairment: Bilateral Hearing Aide Cancer: No Psychosocial: No Integumentary: Yes Eczema Blood Disorders: No Family Medical History Cardiovascular disease 19 MOTHER Diabetes mellitus SON DAUGHTER Physical Exam Vital Signs Vital Signs - First Documented 07/27/19 16:50 Temp 36.7 Pulse 72 Resp 16 B/P (MAP) 163/81 (108) Pulse Ox 99 O2 Delivery Room Air Capillary Refill : Less Than 3 Seconds Height, Weight, BMI Height: 5'5.00" Weight: 165lbs. 3.0oz. 74.609641np; 23.00 BMI Method:Stated General Appearance: WD/WN, no apparent distress HEENT: PERRL/EOMI, normal ENT inspection, TMs normal Neck: non-tender, full range of motion Respiratory: no respiratory distress, no accessory muscle use Gastrointestinal: normal bowel sounds, soft Neurologic/Psychiatric: alert, normal mood/affect, oriented x 3 Skin: normal color, warm/dry Stroke Onset of Symptoms Date of Onset of Symptoms: Jul 27, 2019 Onset of Symptoms: Yes NIH Stroke Scale Assessment Select: Initial Level of Consciousness: 0=Alert (0), Level of Consciousness- Questions: 0=Answers both month/age (0), Gaze: Normal (0), Visual Call: 0=No visual loss (0), Facial Movement (Facial Paresis): 0=Normal symmetrical mnt (0), Motor Function-Arms Right: 0=No drift (0), Motor Function-Arms Left: 0=No drift (0), Motor Function-Legs Right: 0=No drift (0), Motor Function- Legs Left: 0=No drift (0), Limb Ataxia: 0=Absent (0), Sensory: 0=Normal:no loss (0), Best Language: 0=No aphasia (0), Dysarthria: 0=Normal (0), Extinction & Inattention: 0=No abnormality (0), Total: 0 Progress/Results/Core Measures Results/Orders Lab Results Laboratory Tests Test 07/27/19 17:00 07/27/19 17:04 07/27/19 17:11 Range/Units White Blood Count 5.6 4.3-11.0 10^3/uL Red Blood Count 4.71 4.35-5.85 10^6/uL Hemoglobin 14.1 11.5-16.0 G/DL Hematocrit 43 35-52 % Mean Corpuscular Volume 92 80-99 FL Mean Corpuscular Hemoglobin 30 25-34 PG Mean Corpuscular Hemoglobin Concent 33 32-36 G/DL Red Cell Distribution Width 12.7 10.0-14.5 % Platelet Count 137 130-400 10^3/uL Mean Platelet Volume 11.4 H 7.4-10.4 FL Neutrophils (%) (Auto) 67 42-75 % Lymphocytes (%) (Auto) 19 12-44 % Monocytes (%) (Auto) 11 0-12 % Eosinophils (%) (Auto) 3 0-10 % Basophils (%) (Auto) 1 0-10 % Neutrophils # (Auto) 3.8 1.8-7.8 X 10^3 Lymphocytes # (Auto) 1.1 1.0-4.0 X 10^3 Monocytes # (Auto) 0.6 0.0-1.0 X 10^3 Eosinophils # (Auto) 0.1 0.0-0.3 10^3/uL Basophils # (Auto) 0.0 0.0-0.1 10^3/uL Prothrombin Time 13.7 12.2-14.7 SEC INR Comment 1.0 0.8-1.4 Activated Partial Thromboplast Time 28 24-35 SEC D-Dimer 1.80 H 0.00-0.49 UG/ML Sodium Level 139 135-145 MMOL/L Potassium Level 4.3 3.6-5.0 MMOL/L Chloride Level 107 98-107 MMOL/L Carbon Dioxide Level 23 21-32 MMOL/L Anion Gap 9 5-14 MMOL/L Blood Urea Nitrogen 27 H 7-18 MG/DL Creatinine 1.04 0.60-1.30 MG/DL Estimat Glomerular Filtration Rate 50 BUN/Creatinine Ratio 26 Glucose Level 138 H 70-105 MG/DL Calcium Level 10.1 8.5-10.1 MG/DL Corrected Calcium 10.0 8.5-10.1 MG/DL Total Bilirubin 0.3 0.1-1.0 MG/DL Aspartate Amino Transf (AST/SGOT) 20 5-34 U/L Alanine Aminotransferase (ALT/SGPT) 22 0-55 U/L Alkaline Phosphatase 78 40-136 U/L Troponin I < 0.028 <0.028 NG/ML Total Protein 6.8 6.4-8.2 GM/DL Albumin 4.1 3.2-4.5 GM/DL Glucometer 92 70-110 MG/DL Urine Color YELLOW Urine Clarity SL CLOUDY Urine pH 5.0 5-9 Urine Specific [place] 1.025 H 1.016-1.022 Urine Protein NEGATIVE NEGATIVE Urine Glucose (UA) NEGATIVE NEGATIVE Urine Ketones NEGATIVE NEGATIVE Urine Nitrite NEGATIVE NEGATIVE Urine Bilirubin NEGATIVE NEGATIVE Urine Urobilinogen 0.2 < = 1.0 MG/DL Urine Leukocyte Esterase 1+ H NEGATIVE Urine RBC (Auto) NEGATIVE NEGATIVE Urine RBC NONE /HPF Urine WBC 0-2 /HPF Urine Squamous Epithelial Cells 5-10 /HPF Urine Crystals PRESENT H /LPF Urine Calcium Oxalate Crystals RARE H /LPF Urine Uric Acid Crystals LARGE H /LPF Urine Bacteria TRACE /HPF Urine Casts NONE /LPF Urine Mucus NEGATIVE /LPF Urine Culture Indicated NO My Orders Orders - ALYSHA BLACKBURN APRN Cbc With Automated Diff (07/27/19 17:06) Protime With Inr (07/27/19 17:06) Partial Thromboplastin Time (07/27/19 17:06) Comprehensive Metabolic Panel (07/27/19 17:06) Fibrin Degradation Products (07/27/19 17:06) Troponin I (07/27/19 17:06) Ua Culture If Indicated (07/27/19 17:06) Chest 1 View, Ap/Pa Only (07/27/19 17:06) Ekg Tracing (07/27/19 17:06) Nothing By Mouth (07/28/19 Breakfast) Accucheck Stat ONCE (07/27/19 17:06) Ed Iv/Invasive Line Start (07/27/19 17:06) Ed Iv/Invasive Line Start (07/27/19 17:06) Vital Signs Stroke Patient Q15M (07/27/19 17:06) Ct Head Wo-R/O Stroke (07/27/19 17:06) O2 (07/27/19 17:06) Intake & Output 06,14,22 (07/27/19 17:06) Monitor-Rhythm Ecg Trace Only (07/27/19 17:06) Dysphagia Screening Tool (07/27/19 17:06) Lipid Panel (07/28/19 06:00) Vital Signs/I&O 07/27/19 16:50 Temp 36.7 Pulse 72 Resp 16 B/P (MAP) 163/81 (108) Pulse Ox 99 O2 Delivery Room Air Blood Pressure Mean: 108 Diagnostic Imaging Diagonstic Imaging: CT Comments NAME: ТАТЬЯНА [facility] REC#: [id number] PT STATUS: REG ER : 1931 PHYSICIAN: ALYSHA BLACKBURN APRN ADMIT DATE: 07/27/19/ER Draft Date of Exam:07/27/19 CT HEAD WO-R/O STROKE INDICATION: Altered mental status and speech difficulty and dizziness. TECHNIQUE: Multiple contiguous axial images were obtained through the brain without the use of intravenous contrast. Auto Exposure Controls were utilized during the CT exam to meet ALARA standards for radiation dose reduction. COMPARISON: Comparison made to 10/29/2015. FINDINGS: There are mild diffuse atrophic changes. There are mild patchy low-density changes in the deep white matter, compatible with chronic ischemic change of moderate severity. These findings are similar to the previous study. There is no acute hemorrhage or mass effect. Ventricles are normal in size and position. Calvarial windows are unremarkable. IMPRESSION: Atrophy and chronic changes are seen in the deep white matter, appearing similar to the previous study. There is no acute hemorrhage or mass effect or acute-appearing finding. Dictated on workstation # [id number] Dict: 07/27/19 1743 Trans: 07/27/19 1746 [id number] [id number] Interpreted by: ROMANA VEE MD Electronically signed by: Departure Impression Primary Impression: TIA (transient ischemic attack) Disposition: ADMITTED INPATIENT Condition: Stable Admissions Decision to Admit Reason: Admit from ER (General) Decision to Admit/Date: Jul 27, 2019 Time/Decision to Admit Time: 17:54 Departure-Patient Inst. Referrals: JUANITA MARIN DO (PCP/Family) Primary Care Physician ALYSHA BLACKBURN APRN Jul 27, 2019 17:12
[2019-07-27 17:13] LABS: BASOPHILS % (AUTO) 1 % (0-10); EOSINOPHILS # (AUTO) 0.1 10^3/uL (0.0-0.3); EOSINOPHILS % (AUTO) 3 % (0-10); HEMATOCRIT 43 % (35-52); HEMOGLOBIN 14.1 G/DL (11.5-16.0); LYMPHOCYTES # (AUTO) 1.1 X 10^3 (1.0-4.0); LYMPHOCYTES % (AUTO) 19 % (12-44); MEAN CORPUSCULAR HEMOGLOBIN 30 PG (25-34); MEAN CORPUSCULAR HGB CONC 33 G/DL (32-36); MEAN CORPUSCULAR VOLUME 92 FL (80-99); MEAN PLATELET VOLUME 11.4 FL (7.4-10.4); MONOCYTES # (AUTO) 0.6 X 10^3 (0.0-1.0); MONOCYTES % (AUTO) 11 % (0-12); NEUTROPHILS # (AUTO) 3.8 X 10^3 (1.8-7.8); NEUTROPHILS % (AUTO) 67 % (42-75); PLATELET COUNT 137 10^3/uL (130-400); RED CELL DISTRIBUTION WIDTH 12.7 % (10.0-14.5); WHITE BLOOD COUNT 5.6 10^3/uL (4.3-11.0)
[2019-07-27 17:25] LABS: FIBRIN DEGRADATION PRODUCTS 1.8 UG/ML (0.00-0.49); PROTHROMBIN TIME PATIENT 13.7 SEC (12.2-14.7)
[2019-07-27 17:28] LABS: ALANINE AMINOTRANSFERASE 22 U/L (0-55); ALBUMIN 4.1 GM/DL (3.2-4.5); ALKALINE PHOSPHATASE 78 U/L (40-136); BILIRUBIN,TOTAL 0.3 MG/DL (0.1-1.0); BUN/CREATININE RATIO 26; CALCIUM 10.1 MG/DL (8.5-10.1); CARBON DIOXIDE 23 MMOL/L (21-32); CHLORIDE 107 MMOL/L (98-107); CREATININE SERUM 1.04 MG/DL (0.60-1.30); GFR ESTIMATED 50; GLUCOSE 138 MG/DL (70-105); POTASSIUM 4.3 MMOL/L (3.6-5.0); SODIUM 139 MMOL/L (135-145); TOTAL PROTEIN 6.8 GM/DL (6.4-8.2)
[2019-07-27 17:30] LABS: BILIRUBIN,URINE NEGATIVE (NEGATIVE); CLARITY,URINE SL CLOUDY; COLOR,URINE YELLOW; GLUCOSE, URINE (UA) NEGATIVE (NEGATIVE); KETONES,URINE NEGATIVE (NEGATIVE); LEUKOCYTE ESTERASE ,URINE 1+ (NEGATIVE); NITRITE,URINE NEGATIVE (NEGATIVE); PROTEIN,URINE NEGATIVE (NEGATIVE)
--- NOTE | 2019-07-27 17:47 | Diagnostic Imaging Report ---
INDICATION: Altered mental status and speech difficulty and dizziness. TECHNIQUE: Multiple contiguous axial images were obtained through the brain without the use of intravenous contrast. Auto Exposure Controls were utilized during the CT exam to meet ALARA standards for radiation dose reduction. COMPARISON: Comparison made to 10/29/2015. FINDINGS: There are mild diffuse atrophic changes. There are mild patchy low-density changes in the deep white matter, compatible with chronic ischemic change of moderate severity. These findings are similar to the previous study. There is no acute hemorrhage or mass effect. Ventricles are normal in size and position. Calvarial windows are unremarkable. IMPRESSION: Atrophy and chronic changes are seen in the deep white matter, appearing similar to the previous study. There is no acute hemorrhage or mass effect or acute-appearing finding. Dictated by: Dictated on workstation # [id number]
[2019-07-27 17:49] LABS: BACTERIA,URINE TRACE /HPF; CALCIUM OXALATE CRYSTALS,UR RARE /LPF; URIC ACID CRYSTALS,URINE LARGE /LPF; WBC,URINE 0-2 /HPF
--- NOTE | 2019-07-27 17:59 | Diagnostic Imaging Report ---
INDICATION: Stroke symptoms and dizziness. Frontal chest obtained at 05:49 p.m. and compared to 10/12/2017. Heart is borderline in size. There are chronic appearing increased interstitial markings. There is COPD change. There is some mild right basilar scarring. There is no consolidation or pneumothorax or pleural fluid. There is no sign of edema. IMPRESSION: Borderline heart size with COPD changes and chronic interstitial prominence. No acute consolidation or pleural fluid. Mild linear scarring in the right lung base. Dictated by: Dictated on workstation # [id number]
[2019-07-27 19:00] VITALS: BP 182/77
[2019-07-27] MEDS ORDERED: CATHETER FLUSH 10 ML SYR IV PRN (19:15)
[2019-07-27] MEDS: NS IV 1000 ML 1,000 ML IV SCH (19:24)
[2019-07-27] MEDS: inSUlin ASPART (NovoLOG) 1 UNIT/0.01 ML (CHARGE PER UNIT) SC SCH (21:01)
[2019-07-28] VITALS: BP 132/70
[2019-07-28 03:46] VITALS: BP 138/63
[2019-07-28] MEDS: NS IV 1000 ML 1,000 ML IV SCH (04:12)
[2019-07-28 04:23] LABS: CHOLESTEROL 144 MG/DL (< 200); HDL CHOLESTEROL 32 MG/DL (40-60); TRIGLYCERIDES 101 MG/DL (<150); VLDL CHOLESTEROL 20 MG/DL (5-40)
[2019-07-28] MEDS: inSUlin ASPART (NovoLOG) 1 UNIT/0.01 ML (CHARGE PER UNIT) SC SCH ×2 (05:46→11:00)
[2019-07-28 08:00] VITALS: BP 164/80
--- NOTE | 2019-07-28 08:10 | History & Physical ---
History of Present Illness History of Present Illness Reason for visit/HPI Patient received a call from her daughter. What is said patient was not making any sense. Daughter hung up and called her back 5 minutes later and had garbled speech. Then Son came over within 15 minutes and speech was fine. Patient brought out to the emergency room. Patient had severe dizziness at that time. Patient has a history of dizziness. Patient is a fall risk. But patient has not fallen. Patient has a history of diabetes. Date of Admission Jul 27, 2019 at 17:56 Time Seen by a Provider: 08:05 I consulted on this patient on 07/28/19 07:48 Attending Physician Jose Carlos Marin DO Admitting Physician Jose Carlos Marin DO Consult Allergies and Home Medications Allergies Coded Allergies: Penicillins (Verified Allergy, Severe, 10/12/17) aspirin (Verified Allergy, Severe, 10/12/17) levofloxacin (Verified Allergy, Intermediate, 10/12/17) Uncoded Allergies: CONTRAST DYE (Allergy, Severe, 10/12/17) Home Medications Insulin Glargine,Hum.rec.anlog 100 Unit/1 Ml Vial, 10 UNIT SQ HS, (Reported) Patient Home Medication List Home Medication List Reviewed: Yes Past Qubtccv-Dcoboi-Txirfm Hx Past Med/Social Hx: Reviewed Nursing Past Med/Soc Hx Patient Social History Marrital Status: Employed/Student: retired Alcohol Use: Denies Use Recreational Drug Use: No Smoking Status: Never a Smoker 2nd Hand Smoke Exposure: No Recent Foreign Travel: No Contact w/other who traveled: No Recent Hopitalizations: No Recent Infectious Disease Expo: No Immunizations Up To Date Date of Influenza Vaccine: May 07, 2019 Seasonal Allergies Seasonal Allergies: Yes Past Medical History Surgeries: Appendectomy Cardiac: Irregular Heartbeat Endocrine: Diabetes, 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 Skin/Integumentary: Eczema History of Blood Disorders: No Family History Cardiovascular disease 19 MOTHER Diabetes mellitus SON DAUGHTER Review of Systems Constitutional: weakness EENTM: no symptoms reported, other (Speech garbled) Respiratory: no symptoms reported Cardiovascular: no symptoms reported Gastrointestinal: no symptoms reported Genitourinary: no symptoms reported Physical Exam Vital Signs Vital Signs - First Documented 07/27/19 16:50 Temp 36.7 Pulse 72 Resp 16 B/P (MAP) 163/81 (108) Pulse Ox 99 O2 Delivery Room Air Capillary Refill : Less Than 3 Seconds Height, Weight, BMI Height: 5'5.00" Weight: 165lbs. 3.0oz. 74.016073is; 28.18 BMI Method:Stated General Appearance: No Apparent Distress, Thin Eyes: Bilateral Eye Normal Inspection HEENT: Normal ENT Inspection Neck: Full Range of Motion Respiratory: Lungs Clear, No Accessory Muscle Use, No Respiratory Distress Cardiovascular: Regular Rate, Rhythm, No Murmur Assessment/Plan Assessment and Plan TIA. Diabetes. Dizziness. History of atrial fibrillation but knows when she goes into it. Last time 6 months ago Admission Diagnosis Admission Status: Observation Reason for Inpatient Admission: Patient wants to go home today Clinical Quality Measures DVT/VTE Risk/Contraindication: Risk Factor Score Per Nursin RFS Level Per Nursing on Admit: 4+=Very High Stroke: Date of last known well: Jul 27, 2019 JOSE CARLOS MARIN DO Jul 28, 2019 08:10
[2019-07-28] MEDS ORDERED: CLOPIDOGREL 75 MG (PLAVIX) TABLET PO SCH (09:00)
[2019-07-28] MEDS ORDERED: ENOXAPARIN 40 MG/0.4 ML (LOVENOX) SYR SC SCH (09:00)
[2019-07-28 12:00] VITALS: BP 138/73
--- NOTE | 2019-07-28 12:18 | Physical Therapy Evaluation ---
PT Evaluation-General Medical Diagnosis Admission Date Jul 27, 2019 at 17:56 Medical Diagnosis: TIA Onset Date: Jul 27, 2019 Therapy Diagnosis Therapy Diagnosis: Deconditioning Height/Weight Height (Feet): 5 Height (Inches): 5.00 Weight (Pounds): 165 Weight (Ounces): 3.0 Precautions Precautions/Isolations: Fall Prevention, Standard Precautions Referral Physician: Linwood Reason for Referral: Evaluation/Treatment Medical History Pertinent Medical History: Atrial Fib, DM Additional Medical History Eczema, irregular heart beat Current History ER secondary to garbled speech Reviewed History: Yes Social History Home: Single Level Current Living Status: Alone Entry Into Home: Level Entry Prior Prior Level of Function SCALE: Activities may be completed with or without assistive devices. 5-Ibwntsjcer-worfyjp completes the activity by him/herself with no assistance from a helper. 5-Set-up or Clean-up Assistance-helper sets up or cleans up; patient completes activity. [place] assists only prior to or following the activity. 4-Supervision or Touching Assistance-helper provides verbal cues and/or touching/steadying and/or contact guard assistance as patient completes activity. Assistance may be provided throughout the activity or intermittently. 3-Partial/Moderate Assistance-helper does LESS THAN HALF the effort. [place] lifts, holds or supports trunk or limbs, but provides less than half the effort. 2-Substantial/Maximal Assistance-helper does MORE THAN HALF the effort. [place] lifts or holds trunk or limbs and provides more than half the effort. 1-Gusqokxfe-mreljo does ALL the effort. Patient does none of the effort to complete the activity. Or, the assistance of 2 or more helpers is required for the patient to complete the activity. If activity was not attempted, code reason: 7-Patient Refused. 9-Not Applicable-not attempted and the patient did not perform the activity before the current illness, exacerbation or injury. 10-Not Attempted due to Environmental Limitations-(lack of equipment, weather restraints, etc.). 88-Not Attempted due to Medical Conditions or Safety Concerns. Bed Mobility: 6 Transfers (B,C,W/C): 6 Gait: 6 Indoor Mobility (Ambulation): Independent Prior Device Use: Cane PT Evaluation-Current Subjective Patient is agreeable to therapy and states that she is going home today. Pain Numeric Pain Scale: 0-No Pain Objective Patient Orientation: Person, Place, Time, Situation ROM/Strength ROM Lower Extremities WNL BLE Strength Lower Extremities 4/5 gross BLE Integumentary/Posture Integumentary See nursing notes. Bowel Incontinence: No Bladder Incontinence: No Neuromuscular (Tone, Coordination, Reflexes) grossly intact Sensory Vision: Functional Hearing: Hearing Aid/Aides Sensation Right Lower Extremit: Intact Sensation Left Lower Extremity: Intact Transfers Roll Left to Right (QC): 6 Lying to Sitting/Side of Bed(Q: 6 Sit to Stand (QC): 6 Chair/Wcw-gq-Dxyev Xfer(QC): 6 Gait Does the Patient Walk?: Yes Mode of Locomotion: Walk Anticipated Mode of Locomotion: Walk Walk 10 feet (QC): 4 Walk 50 ft with 2 Turns(QC): 4 Walk 150 ft (QC): 4 Distance: 150' Gait Assistive Device: Cane Single Point Comments/Gait Description Patient is unsteady during ambulation at times and walks off to the right side to catch her balance. CGA for safety. Wheelchair Training Does the Pt Use a Wheelchair?: No Balance Sitting Static: Good Sitting Dynamic: Good Standing Static: Fair Standing Dynamic: Fair Assessment/Needs Patient is unsteady at times during ambulation and she has to take a few steps to the side to regain her balance. Rehab Potential: Fair PT Hub Associate Goals Correction Goals PT Correction Goals Time Frame: Aug 04, 2019 Roll Left & Right (QC): 6 Sit to Lying (QC): 6 Lying-Sitting on Side/Bed(QC): 6 Sit to Stand (QC): 6 Chair/Qjf-cs-Pfwlk Xfer(QC): 6 Toilet Transfer (QC): 6 Does the Patient Walk: Yes Walk 10 feet (QC): 6 Walk 50ft with 2 Turns (QC): 6 Walk 150 ft (QC): 6 PT Plan Problem List Problem List: Activity Tolerance, Safety, Balance, Gait, Transfer Treatment/Plan Treatment Plan: Continue Plan of Care Treatment Plan: Education, Functional Activity Quan, Functional Strength, Gait, Safety, Therapeutic Exercise, Transfers Treatment Duration: Aug 04, 2019 Frequency: 6 times per week Estimated Hrs Per Day: .25 hour per day Patient and/or Family Agrees t: Yes Safety Risks/Education Patient Education: Gait Training, Transfer Techniques Teaching Recipient: Patient Teaching Methods: Discussion Response to Teaching: Reinforcement Needed Discharge Recommendations Therapy Discharge Recommendati: Home & Family Time/GCodes Time In: 1121 Time Out: 1135 Total Billed Treatment Time: 14 Total Billed Treatment 1 visit EVL 14 BRIGID SHARMA PT Jul 28, 2019 12:18
--- NOTE | 2019-07-28 13:59 | Occupational Therapy Eval ---
OT Evaluation-General/PLF Medical Diagnosis Admission Date Jul 27, 2019 at 17:56 Medical Diagnosis: TIA Onset Date: Jul 27, 2019 Therapy Diagnosis Therapy Diagnosis: Decreased ADL function Height/Weight Height (Feet): 5 Height (Inches): 5.00 Weight (Pounds): 165 Weight (Ounces): 3.0 Precautions Precautions/Isolations: Fall Prevention, Standard Precautions Safety Interventions: None Weight Bear Status Weight Bearing Restriction: Weight Bearing/Tolerated Referral Physician: Linwood Referral Reason: Activity Tolerance, Self Care, Evaluation/Treatment, Strengthening/ROM Medical History Pertinent Medical History: Atrial Fib, DM Current History Pt experienced garbled speech 07/27 @1300, admitted to ER Reviewed History: Yes Social History Home: Single Level Current Living Status: Alone Entry Into Home: Level Entry ADL-Prior Level of Function SCALE: Activities may be completed with or without assistive devices. 2-Mrczvwmuqn-yzgpkiu completes the activity by him/herself with no assistance from a helper. 5-Set-up or Clean-up Assistance-helper sets up or cleans up; patient completes activity. [place] assists only prior to or following the activity. 4-Supervision or Touching Assistance-helper provides verbal cues and/or t ouching/steadying and/or contact guard assistance as patient completes activity. Assistance may be provided throughout the activity or intermittently. 3-Partial/Moderate Assistance-helper does LESS THAN HALF the effort. [place] lifts, holds or supports trunk or limbs, but provides less than half the effort. 2-Substantial/Maximal Assistance-helper does MORE THAN HALF the effort. [place] lifts or holds trunk or limbs and provides more than half the effort. 5-Ggxqjodgu-igiyya does ALL the effort. Patient does none of the effort to complete the activity. Or, the assistance of 2 or more helpers is required for the patient to complete the activity. If activity was not attempted, code reason: 7-Patient Refused. 9-Not Applicable-not attempted and the patient did not perform the activity before the current illness, exacerbation or injury. 10-Not Attempted due to Environmental Limitations-(lack of equipment, weather restraints, etc.). 88-Not Attempted due to Medical Conditions or Safety Concerns. ADL PLOF Comments Pt states IND within ADLs, assist with IADLs (driving/ shopping) Self Care: Independent Functional Cognition: Independent Drive Self: No Leisure Interests: socializing OT Current Status Subjective Pt seen in bed, states no pain. Pt readily agreeable to OT eval. Mental Status/Objective Patient Orientation: Person, Place, Situation Attachments: Telemetry Current Glasses/Contacts: Yes Hearing Aids: Yes Dentures/Partials: No Hand Dominance: Right Upper Extremity ROM WFL BUE Upper Extremity Coordination WFL BUE Upper Extremity Sensation WFL BUE Upper Extremity Strength WFL BUE (4+/5) ADL-Treatment Eating (QC): 6 Upper Body Dressing (QC): 6 (per clinical judgement) Lower Body Dressing (QC): 6 (Pt completed prior to OT entry) On/Off Footwear (QC): 6 (completes EOB) Toileting Hygiene (QC): 6 (per pt) Other Treatments Pt provides hx. Pt educated on OT role. Pt completes UE MMT/ ROM, WFL BUE. Pt states she was IND at home and states she will not have difficulties at home. Pt states she has been up to/ from bathroom, utilizes cane at home, does not anticipate issues. Pt states she has had "this problem" for ~6 months, states she believes she has inner ear issues as she becomes dizzy/ weak. Pt tested for BPPV, negative in all head positions. Pt completes sit to stand, no dizziness. States she knows "when it's going to happen," denies falls. Pt and OT agree pt IND with ADLs, no OT required. Pt left in bed, all needs met, call light within reach. Education OT Patient Education: Purpose of tx/functional activities, Safety issues Teaching Recipient: Patient Teaching Methods: Demonstration, Discussion Response to Teaching: Verbalize Understanding, Return Demonstration OT Detention Goals Motor Tester Goals 1=Demonstrate adherence to instructed precautions during ADL tasks. 2=Patient will verbalize/demonstrate understanding of assistive devices/modifications for ADL. 3=Patient will improve strength/tolerance for activity to enable patient to perform ADL's. OT Education/Plan Problem List/Assessment Assessment: No Skilled OT Needs ID'd Discharge Recommendations Plan/Recommendations: Discharge/Goals Met Therapy Discharge Recommendati: Home & Family Treatment Plan/Plan of Care Treatment,Training & Education: Yes Plan of Care: OTHER (eval only) Treatment Duration: Jul 28, 2019 Frequency: 1 time per week (eval only) Time/GCodes Start Time: 13:20 Stop Time: 13:33 Total Time Billed (hr/min): 13 Billed Treatment Time 1, EVL (13) SUE GREEN OTR Jul 28, 2019 13:59
[2019-07-28] MEDS ORDERED: INSU100I10 SQ (14:17)
--- NOTE | 2019-07-28 14:18 | NUR ---
SPOKE WITH THE PT AND WENT THRU THE EXT MED HISTORY TO COMPLETE THE MED REC. PT SAID SHE JUST TAKES LANTUS AND NO OTHER PRESCRIPTIONS AND NO OTC MEDS
--- NOTE | 2019-07-28 14:49 | NUR ---
Pt is Quaker. Business Associate provided prayer and Communion.
--- NOTE | 2019-07-28 15:22 | Diagnostic Imaging Report ---
PROCEDURE: US carotid duplex, bilateral. TECHNIQUE: Multiple real-time grayscale images were obtained over the carotid arteries in various projections, bilaterally. Additional spectral analysis and color Doppler duplex images were also obtained. INDICATION: Transient ischemic attack. COMPARISON: None available. FINDINGS: Right carotid circulation: The right common carotid artery is normal in caliber, and there is no significant stenosis. Peak systolic velocity in the right common carotid artery is 74 cm/sec. There is a small amount of calcified atherosclerotic plaque in the carotid bulb and proximal internal carotid artery, which results in less than 50% luminal narrowing by ulloa scale imaging. The peak systolic velocity in the proximal internal carotid artery is 72 cm/sec. Proximal aspect of the external carotid artery is patent with expected high resistance waveforms, and peak systolic velocity of 102 cm/sec. Left carotid circulation: The left common carotid artery is normal in caliber, and there is no significant stenosis. Peak systolic velocity in the left common carotid artery is 93 cm/sec. There is a small amount of calcified atherosclerotic plaque in the carotid bulb and proximal internal carotid artery, which results in less than 50% luminal narrowing by ulloa scale imaging. The peak systolic velocity in the proximal internal carotid artery is 83 cm/sec. Proximal aspect of the external carotid artery is patent with expected high resistance waveforms, and peak systolic velocity of 104 cm/sec. Vertebral arteries: Flow in the bilateral vertebral arteries is antegrade. IMPRESSION: 1. Less than 50% stenosis of the bilateral proximal internal carotid arteries due to atherosclerotic plaquing. 2. Patent vertebral arteries with antegrade flow. Parameters based on the consensus panel Ulloa-Scale and Doppler ultrasound criteria published April 2003, Radiology, Volume 229. DOPPLER (peak systolic velocity M/S Right Left CCA .74 .93 ICA Proximal .65 .64 ICA Mid .72 .77 ICA Distal .52 .83 RATIO .98 .90 ECA 1.02 1.04 VERT .44 .65 Dictated by: Dictated on workstation # [id number]
[2019-07-28 15:59] VITALS: BP 130/65
--- NOTE | 2019-07-28 16:47 | Diagnostic Imaging Report ---
MRI brain without contrast Technique: Multiplanar, multisequence MRI of the brain was performed without contrast. Indication: Speech abnormalities. Transient ischemic attack. Comparison: CT head, 07/27/2019. Findings: The diffusion series demonstrates no restriction to suggest acute ischemia. There is no MR evidence of acute intracranial hemorrhage. There is no evidence of intracranial mass effect or shift. Age-appropriate global cerebral volume loss is demonstrated. There are moderate to advanced background chronic microvascular ischemic changes demonstrated within the subcortical and periventricular white matter. There are remote lacunar infarcts in the right cerebellum. [place]lloa and white matter signal characteristics are otherwise unremarkable. There is no abnormal extra-axial fluid collection. The ventricles are appropriate in size and configuration. The basilar cisterns are patent. Pituitary gland and pineal region appear normal. There is normal alignment of the craniocervical junction. No acute posterior fossa abnormality is demonstrated. The mastoids are clear. The paranasal sinuses are clear. The orbital contents are unremarkable. Expected arterial and dural venous sinus flow voids appear preserved. Impression: 1. No MR evidence of an acute intracranial abnormality. There is no evidence of acute ischemia, hemorrhage, intracranial mass effect, or hydrocephalus. 2. Age-appropriate global cerebral volume loss. Moderate to advanced chronic microvascular ischemic changes are demonstrated throughout the white matter. Remote right cerebellar lacunar infarcts. Dictated by: Dictated on workstation # [id number]
[2019-07-28] MEDS ORDERED: ATOR40TA PO (17:00)
--- NOTE | 2019-07-29 14:47 | NUR ---
atorvastatin 80mg po HS as ordered by dr mata at discharge called in to [facility] per pt request.
--- NOTE | 2019-07-31 07:27 | Clinic Account Progress/Dx ---
Clinic Account Progress/Dx DIAGNOSIS: Time Seen by Provider: 07:27 8. Diabetes. Dizziness. Unsteady gait JUANITA MARIN DO Jul 31, 2019 07:27
== END 2019-07-28 17:10 | disposition home or self-care (01) ==
LOC: EDUNIT# 16:42 → ER 16:43 → CSD 17:56
PROVIDERS: ADMIT Family Medicine; ATTEND Family Medicine
DX: G45.9 Transient cerebral ischemic attack, unspecified (principal); I48.91 Unspecified atrial fibrillation; J30.9 Allergic rhinitis, unspecified; E11.9 Type 2 diabetes mellitus without complications; Z88.0 Allergy status to penicillin; Z88.6 Allergy status to analgesic agent; Z88.1 Allergy status to other antibiotic agents; Z91.041 Radiographic dye allergy status; Z90.89 Acquired absence of other organs; Z82.49 Family history of ischemic heart disease and other diseases of the circulatory system
CPT/HCPCS: 36415; 70450; 70551; 71045; 80053; 80061; 81000; 82962; 83036; 84484; 85025; 85379; 85610; 85730; 93005; 93041; 93880

== ENCOUNTER → 2020-08-02 | Outpatient (CLI) | payer MEDICARE, OTHER ==
[~2020-08-02] MED LIST changes: +ATOR40TA PO; +INSU100I10 SQ
--- NOTE | 2020-08-02 15:42 | Diagnostic Imaging Report ---
INDICATION: Abdominal pain. COMPARISON: 10/18/2018. EXAMINATION: Two supine radiographic views of the abdomen were obtained. FINDINGS: Small bowel loops are nondistended. There is no large collection of free intraperitoneal air. No unexpected extra osseous calcification or radiopaque foreign body is seen. Osseous structures show age-related degenerative changes. Included portions of the lung bases are clear. IMPRESSION: Nonobstructive small bowel gas pattern. Dictated by: Dictated on workstation # [id number]
== END ==
LOC: RAD 10:46
PROVIDERS: ATTEND Family Medicine
DX: R10.9 Unspecified abdominal pain (principal); R14.0 Abdominal distension (gaseous)
CPT/HCPCS: 74018

== ENCOUNTER 2021-03-24 15:21 | Outpatient (RCR) | payer MEDICARE, OTHER | END 2021-03-25 | disposition home or self-care (01) | PROVIDERS: ATTEND Family Medicine | DX: R42 Dizziness and giddiness (principal); E11.9 Type 2 diabetes mellitus without complications ==

== ENCOUNTER 2021-04-18 11:10 | Outpatient (RCR) | payer MEDICARE, OTHER | END 2021-06-06 | disposition home or self-care (01) | PROVIDERS: ATTEND Family Medicine | DX: R42 Dizziness and giddiness (principal); E11.9 Type 2 diabetes mellitus without complications; R53.1 Weakness ==

== ENCOUNTER 2021-05-15 16:39 | Emergency (ER) | payer MEDICARE, OTHER ==
[~2021-05-15] VITALS: Ht 165 cm; Wt 68.0 kg
--- NOTE | 2021-05-15 17:13 | ED Cardiac General ---
History of Present Illness General Stated Complaint: HIGH BLOOD PRESSURE Source: patient Exam Limitations: no limitations History of Present Illness Date Seen by Provider: May 15, 2021 Time Seen by Provider: 17:11 Initial Comments To ER by private vehicle with reports of high blood pressure. She is been dealing with dizziness for many years. It seemed worse today. She went to physical therapy who has been helping her with Zeke maneuvers. When they checked her blood pressure they found it to be high. Typically she does not have any issues with blood pressure control and she takes no antihypertensives she states. She denies any chest pain or shortness of breath. She does report that she had an "string of lights" in the left eye this afternoon lasting for about 1 hour. Vision is back to normal at this time. Timing/Duration: changing over time Severity: moderate Activities at Onset: none NTG SL WAREHOUSE ADMINISTRATOR: No ASA po WAREHOUSE ADMINISTRATOR: No Associated Systoms: No Headaches, No Nausea/Vomiting Allergies and Home Medications Allergies Coded Allergies: Penicillins (Verified Allergy, Severe, 10/12/17) aspirin (Verified Allergy, Severe, 10/12/17) levofloxacin (Verified Allergy, Intermediate, 10/12/17) amoxicillin (Verified Allergy, Unknown, 05/15/21) Uncoded Allergies: CONTRAST DYE (Allergy, Severe, 10/12/17) Patient Home Medication List Home Medication List Reviewed: Yes Atorvastatin Calcium (Lipitor) 40 Mg Tablet, 80 MG PO HS Prescribed by: DEBBIE KRUSE on 07/28/19 1700 Insulin Glargine,Hum.rec.anlog (Lantus Solostar) 100 Unit/1 Ml Insuln.pen, 8 UNITS SQ HS, (Reported) Entered as Reported by: ARMANI HORN on 07/28/19 1417 Review of Systems Review of Systems Constitutional: see HPI EENTM: Blurred Vision Respiratory: No Symptoms Reported Cardiovascular: No Symptoms Reported Gastrointestinal: No Symptoms Reported Genitourinary: No Symptoms Reported Musculoskeletal: no symptoms reported Skin: no symptoms reported Psychiatric/Neurological: No Symptoms Reported Endocrine: No Symptoms Reported Hematologic/Lymphatic: No Symptoms Reported Past Lhkvmlw-Xsbqrh-Pbuehj Hx Seasonal Allergies Seasonal Allergies: Yes Past Medical History Surgeries: Yes (HEART CATH) Appendectomy Respiratory: No Cardiac: Yes (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 3.0oz. 74.219158jd; 28.18 BMI Method:Stated General Appearance: No Apparent Distress, WD/WN, Other (Alert and oriented very pleasant. Reports that her vision is back to normal. Her blood pressure is elevated at 198/98. ) HEENT: PERRL/EOMI, TMs Normal Neck: Full Range of Motion, Normal Inspection Respiratory: No Accessory Muscle Use, No Respiratory Distress Cardiovascular: Regular Rate, Rhythm, Normal Peripheral Pulses Gastrointestinal: Normal Bowel Sounds, Non Tender, Soft Neurologic/Psychiatric: Alert, Oriented x3 Skin: Normal Color, Warm/Dry Progress/Results/Core Measures Results/Orders Lab Results Laboratory Tests Test 05/15/21 17:10 Range/Units White Blood Count 5.8 4.3-11.0 10^3/uL Red Blood Count 4.70 3.80-5.11 10^6/uL Hemoglobin 14.1 11.5-16.0 g/dL Hematocrit 44 35-52 % Mean Corpuscular Volume 93 80-99 fL Mean Corpuscular Hemoglobin 30 25-34 pg Mean Corpuscular Hemoglobin Concent 32 32-36 g/dL Red Cell Distribution Width 12.0 10.0-14.5 % Platelet Count 151 130-400 10^3/uL Mean Platelet Volume 11.4 9.0-12.2 fL Immature Granulocyte % (Auto) 0 % Neutrophils (%) (Auto) 68 42-75 % Lymphocytes (%) (Auto) 18 12-44 % Monocytes (%) (Auto) 10 0-12 % Eosinophils (%) (Auto) 3 0-10 % Basophils (%) (Auto) 1 0-10 % Neutrophils # (Auto) 4.0 1.8-7.8 10^3/uL Lymphocytes # (Auto) 1.1 1.0-4.0 10^3/uL Monocytes # (Auto) 0.6 0.0-1.0 10^3/uL Eosinophils # (Auto) 0.2 0.0-0.3 10^3/uL Basophils # (Auto) 0.0 0.0-0.1 10^3/uL Immature Granulocyte # (Auto) 0.0 0.0-0.1 10^3/uL Sodium Level 138 135-145 MMOL/L Potassium Level 4.6 3.6-5.0 MMOL/L Chloride Level 106 98-107 MMOL/L Carbon Dioxide Level 22 21-32 MMOL/L Anion Gap 10 5-14 MMOL/L Blood Urea Nitrogen 20 H 7-18 MG/DL Creatinine 0.91 0.60-1.30 MG/DL Estimat Glomerular Filtration Rate 58 BUN/Creatinine Ratio 22 Glucose Level 155 H 70-105 MG/DL Calcium Level 9.7 8.5-10.1 MG/DL Corrected Calcium 9.7 8.5-10.1 MG/DL Total Bilirubin 0.4 0.1-1.0 MG/DL Aspartate Amino Transf (AST/SGOT) 19 5-34 U/L Alanine Aminotransferase (ALT/SGPT) 23 0-55 U/L Alkaline Phosphatase 83 40-136 U/L Total Protein 7.0 6.4-8.2 GM/DL Albumin 4.0 3.2-4.5 GM/DL My Orders Orders - ALYSHA BLACKBURN APRN Cbc With Automated Diff (05/15/21 17:00) Comprehensive Metabolic Panel (05/15/21 17:00) Ekg Tracing (05/15/21 17:00) Ed Iv/Invasive Line Start (05/15/21 17:00) Ct Head Wo (05/15/21 17:09) Clonidine Tablet (Catapres Tablet) (05/15/21 17:15) Medications Given in ED Current Medications Medications Dose Ordered Sig/Stalin Route Start Time Stop Time Status Last Admin Dose Admin Clonidine HCl 0.1 mg ONCE ONCE PO 05/15/21 17:15 05/15/21 17:16 DC 05/15/21 17:18 0.1 MG Vital Signs/I&O 05/15/21 17:05 Temp 36.6 Pulse 75 Resp 18 B/P (MAP) 198/98 (131) O2 Delivery Room Air Departure Communication (Admissions) 1730-I did clarify her allergies with her. She confirms that she is allergic to aspirin but not sure what it does to her. She also reports that she is allergic to IV contrast for CT scans and cardiac catheterizations and that it "made me go blind". She states that her doctor then told her "never let anybody give you contrast again". 1906-at this time she states that she is feeling quite a bit better. Her blood pressure is down to 158 over 80s. Her son asks if she could have had this hypertension from stress and anxiety. He states that one of his brothers, her other children has some health issues and she is a known worrier and patient admits to this to. I discussed with her the need to follow-up with optometry tomorrow if her visual symptoms recur though they lasted only about 1 hour and was described as a string of lights and is back to normal now. Impression Primary Impression: Hypertension Disposition: 01 HOME, SELF-CARE Condition: Stable Departure-Patient Inst. Decision time for Depature: 18:51 Referrals: JUANITA MARIN DO (PCP) Primary Care Physician Patient Instructions: High Blood Pressure Emergencies ALYSHA BLACKBURN APRN May 15, 2021 17:13
[2021-05-15] MEDS ORDERED: cloNIDine 0.1 MG (CATAPRES) TAB PO ONE (17:15)
[2021-05-15 17:20] LABS: BASOPHILS % (AUTO) 1 % (0-10); EOSINOPHILS # (AUTO) 0.2 10^3/uL (0.0-0.3); EOSINOPHILS % (AUTO) 3 % (0-10); HEMATOCRIT 44 % (35-52); HEMOGLOBIN 14.1 g/dL (11.5-16.0); LYMPHOCYTES # (AUTO) 1.1 10^3/uL (1.0-4.0); LYMPHOCYTES % (AUTO) 18 % (12-44); MEAN CORPUSCULAR HEMOGLOBIN 30 pg (25-34); MEAN CORPUSCULAR HGB CONC 32 g/dL (32-36); MEAN CORPUSCULAR VOLUME 93 fL (80-99); MEAN PLATELET VOLUME 11.4 fL (9.0-12.2); MONOCYTES # (AUTO) 0.6 10^3/uL (0.0-1.0); MONOCYTES % (AUTO) 10 % (0-12); NEUTROPHILS % (AUTO) 68 % (42-75); PLATELET COUNT 151 10^3/uL (130-400); WHITE BLOOD COUNT 5.8 10^3/uL (4.3-11.0)
[2021-05-15 17:31] LABS: POTASSIUM 4.6 MMOL/L (3.6-5.0)
[2021-05-15 17:32] LABS: CALCIUM 9.7 MG/DL (8.5-10.1)
[2021-05-15 17:35] LABS: BILIRUBIN,TOTAL 0.4 MG/DL (0.1-1.0)
[2021-05-15 17:37] LABS: CREATININE SERUM 0.91 MG/DL (0.60-1.30)
--- NOTE | 2021-05-15 18:36 | Diagnostic Imaging Report ---
Clinical indications: Patient with dizziness and transient vision loss and hypertension. Exam: Axial CT scan of the brain without IV contrast with coronal and sagittal reformatted images. Auto Exposure Controls were utilized during the CT exam to meet ALARA standards for radiation dose reduction. Comparison: MRI of the brain without contrast dated 07/28/[address] without contrast dated 07/27/2019. Findings: There is no evidence of acute cerebral infarct, intracranial hemorrhage, or gross mass effect. Brain parenchymal volume loss is again seen. 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 There is normal workman-white matter distinction. There is no significant midline shift or herniation. There is no evidence of hydrocephalus. The basal cisterns are unremarkable. The skull, extracranial soft tissue, and orbits are unremarkable. The paranasal sinuses are unremarkable. Temporal bones show no significant abnormality. Impression: There is no evidence of acute intracranial process. Dictated by: Dictated on workstation # [id number]
[2021-05-15 19:08] VITALS: BP 156/69
== END 2021-05-15 19:22 | disposition home or self-care (01) ==
LOC: EDUNIT# 16:39 → ER 16:41
DX: I10 Essential (primary) hypertension (principal); E11.9 Type 2 diabetes mellitus without complications
CPT/HCPCS: 36415; 70450; 80053; 85025; 93005

== ENCOUNTER 2021-06-10 19:03 | Emergency (ER) | payer MEDICARE, OTHER ==
[~2021-06-10] VITALS: Ht 165 cm; Wt 66.0 kg
--- NOTE | 2021-06-10 19:12 | ED Fall/Injury ---
General Stated Complaint: FALL/HEAD LAC Source: patient Exam Limitations: no limitations History of Present Illness Date Seen by Provider: Jun 10, 2021 Time Seen by Provider: 18:59 Initial Comments Patient ER by private conveyance from home with her son and chief complaint that just prior to arrival she had a fall while getting up out of her chair. She say s she was standing up and her feet slipped out from underneath her and she fell backwards striking the back of her head. She says she lost consciousness for maybe a minute or 2. She denies any dysuria, hematuria, diarrhea, constipation, cough, shortness of breath, nausea, vomiting. She is just having pain in the back of her head and upper neck. She says she was able to get herself over to her phone and called her son who brought her in. She is not on blood thinners. It has been greater than 5 years since she had a tetanus vaccine. She had a reaction to the tetanus vaccine in the past and does not want it today. Allergies and Home Medications Allergies Coded Allergies: Penicillins (Verified Allergy, Severe, 10/12/17) aspirin (Verified Allergy, Severe, 10/12/17) levofloxacin (Verified Allergy, Intermediate, 10/12/17) amoxicillin (Verified Allergy, Unknown, 05/15/21) Uncoded Allergies: CONTRAST DYE (Allergy, Severe, 10/12/17) Patient Home Medication List Home Medication List Reviewed: Yes Atorvastatin Calcium (Lipitor) 40 Mg Tablet, 80 MG PO HS Prescribed by: DEBBIE KRUSE on 07/28/19 1700 Insulin Glargine,Hum.rec.anlog (Lantus Solostar) 100 Unit/1 Ml Insuln.pen, 8 UNITS SQ HS, (Reported) Entered as Reported by: ARMANI HORN on 07/28/19 1417 Review of Systems Review of Systems Constitutional: No chills, No malaise Eyes: Denies Blindness, Denies Drainage Ears, Nose, Mouth, Throat: denies ear pain, denies ear discharge Respiratory: No cough, No short of breath Cardiovascular: No chest pain, No edema Gastrointestinal: No abdominal pain, No constipation, No diarrhea, No nausea, No vomiting Genitourinary: No discharge, No dysuria, No frequency, No hematuria Musculoskeletal: No back pain, No joint pain; neck pain All Other Systems Reviewed Negative Unless Noted: Yes Past Ocycsaf-Sewgzc-Czeftt Hx Patient Social History Tobacco Use?: No Use of E-Cig and/or Vaping dev: No Substance use?: No Seasonal Allergies Seasonal Allergies: Yes Past Medical History Surgeries: Yes (HEART CATH) Appendectomy Respiratory: No Cardiac: Yes (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") Irregular Heartbeat Neurological: No Genitourinary: Yes (CURRENT UTI) Gastrointestinal: No Musculoskeletal: No Endocrine: Yes Diabetes, Non-Insulin dep HEENT: Yes (VERTIGO) Hearing Impairment: Bilateral Hearing Aide Cancer: No Psychosocial: No Integumentary: Yes Eczema Blood Disorders: No Family Medical History Cardiovascular disease 19 MOTHER Diabetes mellitus SON DAUGHTER Physical Exam Vital Signs Vital Signs - First Documented 06/10/21 19:05 Temp 36.8 Pulse 78 Resp 18 B/P (MAP) 178/86 (116) Pulse Ox 98 O2 Delivery Room Air Capillary Refill : Height, Weight, BMI Height: 5'5.00" Weight: 165lbs. 3.0oz. 74.711156bm; 24.00 BMI Method:Stated General Appearance: WD/WN, mild distress HEENT: PERRL/EOMI, normal ENT inspection, TMs normal, pharynx normal, other (Occipital left-sided 3 cm head laceration 1) Neck: full range of motion, supple, normal inspection Cardiovascular: normal peripheral pulses, regular rate, rhythm Respiratory: chest non-tender, lungs clear, normal breath sounds, no respiratory distress, no accessory muscle use Peripheral Pulses: 2+ Radial Pulses (R), 2+ Radial Pulses (L) Gastrointestinal: non tender, soft Extremities: normal range of motion, non-tender, normal capillary refill Neurologic/Psychiatric: alert, normal mood/affect, oriented x 3 Skin: normal color, warm/dry, other (Irregular blunt laceration over the right occiput hemostatic) Wright Coma Score Best Eye Response: (4) Open Spontaneously Best Verbal Response: (5) Oriented Best Motor Response: (6) Obeys Commands Wright Total: 15 Procedures/Interventions Wound Location: Scalp Other Wound Location Left occiput Wound Length (cm): 3 Wound's Depth, Shape: linear, sub Q Wound Explored: no foreign body removed Irrigated w/ Saline (ccs): 100 Anesthesia: 1% Lidocaine Volume Anesthetic (ccs): 6 Wound Debrided: minimal Staple Repair: Stapler 35W Number of Sutures: 8 Layer Closure?: 1 Number Deep Layer Sutures: 0 Sterile Dressing Applied?: Yes Progress Wound was thoroughly cleaned explored reapproximated and closed being anesthetized with lidocaine. 8 herbert total patient tolerated procedure well Progress/Results/Core Measures Results/Orders Lab Results Laboratory Tests Test 06/10/21 19:42 Range/Units Hemoglobin 13.2 11.5-16.0 g/dL Hematocrit 40 35-52 % My Orders Orders - KANDY BARRAZA Ct Head/Cervical Spine Wo (06/10/21 19:08) Lidocaine 1% Inj 20 Ml (Xylocaine 1% Inj (06/10/21 19:15) Hemoglobin And Hematocrit (06/10/21 19:12) Medications Given in ED Current Medications Medications Dose Ordered Sig/Stalin Route Start Time Stop Time Status Last Admin Dose Admin Lidocaine HCl 20 ml ONCE ONCE INJ 06/10/21 19:15 06/10/21 19:16 DC 06/10/21 19:43 20 ML Vital Signs/I&O 06/10/21 19:05 Temp 36.8 Pulse 78 Resp 18 B/P (MAP) 178/86 (116) Pulse Ox 98 O2 Delivery Room Air Progress Progress Note #1: Time: 19:11 Progress Note Wound is hemostatic. Will do CT of the head and C-spine and then cleaned the wound thoroughly and close appropriately. C-collar placed. Progress Note #2: Time: 19:40 Progress Note C-collar removed and cleared both clinically and radiographically. Diagnostic Imaging Diagonstic Imaging: CT Plain Films/CT/US/NM/MRI: c-spine, head Comments NAME: ТАТЬЯНА [facility]O MED REC#: [id number] PT STATUS: REG ER : 1930 PHYSICIAN: KANDY BARRAZA MD ADMIT DATE: 06/10/21/ER Draft Date of Exam:06/10/21 CT HEAD/CERVICAL SPINE WO CLINICAL INDICATION: Patient status post fall/trauma. EXAM: Head CT without IV contrast with sagittal and coronal reformations. Axial CT scan of the cervical spine with sagittal and coronal reformations. Auto Exposure Controls were utilized during the CT exam to meet ALARA standards for radiation dose reduction. COMPARISON: Head CT without contrast dated 05/15/2021 FINDINGS: Head CT: There is no evidence of acute cerebral infarct, intracranial hemorrhage, or gross mass effect. The brain parenchymal volume appears appropriate for patient's age. Stable patchy and confluent areas of low-attenuation white matter changes involving both cerebral hemispheres and periventricular regions, likely representing chronic small vessel ischemic disease and leukoaraiosis. There is normal workman-white matter distinction. There is no significant midline shift or herniation. There is no evidence of hydrocephalus. The basal cisterns are unremarkable. There is a small area of extracranial soft tissue swelling and laceration involving the right of midline posterior occipital region. There is no skull fracture. Otherwise, the skull, extracranial soft tissue, and orbits are unremarkable. The paranasal sinuses are unremarkable. Temporal bones show no significant abnormality. Cervical spine: There is no acute cervical spine fracture or dislocation. There are cervical spine degenerative spurs. The visualized upper lung [place] are clear. The neck soft tissue structures show no significant abnormality. IMPRESSION: 1: There is no evidence of acute intracranial process. There is no intracranial hemorrhage. 2: There is a small area of extracranial soft tissue swelling/laceration in the region of the occiput. There is no skull fracture. 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 Dictated on workstation # [id number] Dict: 06/10/211937 Trans: 06/10/211945 [facility] [id number] Interpreted by: LANDON DELUCA MD Electronically signed by: Reviewed: Reviewed by Me Departure Impression Primary Impression: Fall Qualified Codes: W19.XXXA - Unspecified fall, initial encounter Additional Impressions: Occipital scalp laceration Qualified Codes: S01.01XA - Laceration without foreign body of scalp, initial encounter Mild concussion Qualified Codes: S06.0X1A - Concussion with loss of consciousness of 30 minutes or less, initial encounter Disposition: 01 HOME, SELF-CARE Condition: Stable Departure-Patient Inst. Decision time for Depature: 19:56 Referrals: JUANITA MARIN DO (PCP/Family) Primary Care Physician Patient Instructions: Laceration Repair With [place] (DC), Concussion, Adult (DC) Add. Discharge Instructions: Expect to have a mild concussion for the next several days. You may have headaches, irritability, nausea, instability on his feet. This is normal after head injury and is best treated with sleep and a low stimuli environment for the first couple days. For pain use ice 20 minutes on every 2 hours for the first 3 days while awake. Tylenol 1000 mg every 8 hours necessary for pain. Ibuprofen 600 mg every 8 hours as necessary for pain. Return to the ER in 7 to 10 days to have the herbert removed. If you develop fever, intractable vomiting or other worrisome symptoms then return to your doctor sooner. KANDY BARRAZA Jun 10, 2021 19:12
[2021-06-10] MEDS ORDERED: LIDOCAINE 1% INJ 20 ML 20 ML VIAL INJ ONE (19:15)
--- NOTE | 2021-06-10 19:46 | Diagnostic Imaging Report ---
CLINICAL INDICATION: Patient status post fall/trauma. EXAM: Head CT without IV contrast with sagittal and coronal reformations. Axial CT scan of the cervical spine with sagittal and coronal reformations. Auto Exposure Controls were utilized during the CT exam to meet ALARA standards for radiation dose reduction. COMPARISON: Head CT without contrast dated 05/15/2021 FINDINGS: Head CT: There is no evidence of acute cerebral infarct, intracranial hemorrhage, or gross mass effect. The brain parenchymal volume appears appropriate for patient's age. Stable patchy and confluent areas of low-attenuation white matter changes involving both cerebral hemispheres and periventricular regions, likely representing chronic small vessel ischemic disease and leukoaraiosis. There is normal workman-white matter distinction. There is no significant midline shift or herniation. There is no evidence of hydrocephalus. The basal cisterns are unremarkable. There is a small area of extracranial soft tissue swelling and laceration involving the right of midline posterior occipital region. There is no skull fracture. Otherwise, the skull, extracranial soft tissue, and orbits are unremarkable. The paranasal sinuses are unremarkable. Temporal bones show no significant abnormality. Cervical spine: There is no acute cervical spine fracture or dislocation. There are cervical spine degenerative spurs. The visualized upper lung almonte are clear. The neck soft tissue structures show no significant abnormality. IMPRESSION: 1: There is no evidence of acute intracranial process. There is no intracranial hemorrhage. 2: There is a small area of extracranial soft tissue swelling/laceration in the region of the occiput. There is no skull fracture. 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 Dictated by: Dictated on workstation # [id number]
[2021-06-10 19:49] LABS: HEMOGLOBIN 13.2 g/dL (11.5-16.0)
[2021-06-10 20:15] VITALS: BP 153/62
== END 2021-06-10 20:15 | disposition home or self-care (01) ==
LOC: EDUNIT# 19:03 → ER 19:05
DX: S06.0X1A Concussion with loss of consciousness of 30 minutes or less, initial encounter (principal); S01.01XA Laceration without foreign body of scalp, initial encounter; E11.9 Type 2 diabetes mellitus without complications; W22.8XXA Striking against or struck by other objects, initial encounter
CPT/HCPCS: 36415; 70450; 72125; 85014; 85018

== ENCOUNTER 2021-06-17 14:37 | Emergency (ER) | payer MEDICARE, OTHER ==
[2021-06-17 15:29] VITALS: BP 176/62
== END 2021-06-17 15:34 | disposition home or self-care (01) ==
LOC: EDUNIT# 14:37 → ER 14:39
DX: Z48.02 Encounter for removal of sutures (principal)